=== PATIENT | male | born 1965 | race Caucasian/White ===

== ENCOUNTER 2017-04-09 06:17 | Day surgery (SDC) | payer OTHER ==
[2017-04-09] MEDS ORDERED: VANCOMYCIN 1 GM VIAL ONE (06:32)
[2017-04-09] MEDS ORDERED: LACTATED RINGERS 1,000 ML IV ONE ×3 (06:54→09:44)
[2017-04-09] MEDS ORDERED: diphenhydrAMINE INJ 50 MG/ML VIAL ONE ×2 (08:21→10:01)
[2017-04-09] MEDS ORDERED: BUPIVACAINE 0.5% PF 30 ML VIAL INFIL ONE (08:25)
[2017-04-09] MEDS ORDERED: ONDANSETRON 4 MG/2 ML VIAL IVP ONE (08:30)
[2017-04-09] MEDS ORDERED: fentaNYL 100 MCG/2 ML VIAL IVP ONE (08:30)
[2017-04-09] MEDS ORDERED: DEXAMETHASONE 4 MG/ML VIAL IVP ONE (08:30)
[2017-04-09] MEDS ORDERED: diphenhydrAMINE INJ 50 MG/ML VIAL IVP ONE (08:30)
[2017-04-09] MEDS ORDERED: KETOROLAC 30 MG/ML VIAL IVP ONE (08:30)
[2017-04-09] MEDS ORDERED: LIDOCAINE-MPF 2% 5 ML VIAL IM ONE (08:30)
[2017-04-09] MEDS ORDERED: PROPOFOL 200 MG/20 ML VIAL IVP ONE (08:30)
--- NOTE | 2017-04-09 08:51 | OPERATIVE REPORT ---
Operative Report - General Procedure Date: 04/09/17 Planned Procedure: Umbilical herniorrhaphy Pre-Op Diagnosis: Umbilical hernia Procedure Performed: Umbilical herniorrhaphy with mesh Post Op Diagnosis: Umbilical hernia - Procedure Note Primary Surgeon: Bryce Campbell MD Anesthesia Provider: Mo Stevens MD Anesthesia Technique: General ET tube, Local (30 mL of half percent Marcaine) IV Fluids (mL): 500 Estimated Blood Loss (mL): 5 Complications: None. - Other Other Information/Narrative: OPERATIVE DESCRIPTION/REPORT: After verbal and written informed consent was obtained detailing the risks of infection, bleeding requiring transfusion with its risks, nerve injury, and , and after I met with the patient confirming the surgery and the site of the surgery, the patient was brought to the operative suite and placed supine on the operating table. Great care was taken to avoid pressure points to prevent pressure necrosis or nerve injury. Monitoring devices were applied along with TEDs and pneumatic compressive stockings (to prevent DVT). The patient received preoperative antibiotics for surgical prophylaxis. Dr. Mo Stevens sedated and anethetized the patient for the entire procedure. The patient was prepped and draped in the usual sterile manner. With the patient draped my initials were clearly visible. A "time in" then confirmed that the paitient was identified with 3 identifiers (name, birthdate and medical record number), the history and physical was in the chart, the signed consent confirming the procedure was in the chart, the patient was in the correct position, the aforementioned prophylactic measures were in place or given, we had the correct personel and equipment to complete the procedure and that anesthesia, surgery and nursing were given an opportunuty to express any concerns. With the agreement of everyone in the room, we proceeded with the operation. After injecting the area with 1/2% marcaine, a standard curvilinear umbilical incision was made and dissection was carried down to the hernia sac using a combination of Metzenbaum scissors and Bovie electrocautery. The sac was cleared of overlying adherent tissue, and the fascial defect was delineated. The fascia was cleared of any adherent tissue for a distance 1.5 cm from the defect. The sac was resected using Bovie electrocautery. The defect was closed using a 1.7 inch in diameter Ventralex ST hernia patch (reference # [id number], lot #[id number], use by date 2018-08-21). This was inserted into the defect and the straps were cut long enough to use the straps to secure the patch superiorly and inferiorly with 2-0 PDS suture. The fascial defect was then closed over the mesh using a simple 2-0 PDS. The patient was then given an ``innie by suturing the back of the umbilicus to the fascia using a 2-0 Vicryl. Meticulous hemostasis was obtained using Bovie electrocautery. The skin incision was approximated with a running 4-0 Monocryl. At this point a time out was performed that confirmed that all the counts were correct, the procedure that was performed, the blood loss, the urine output, the IV fluids administered , and the patients condition. Having tolerated the procedure well, the patient was subsequently taken to short stay in good and stable condition.
[2017-04-09] MEDS ORDERED: HYDROCORTISONE SUCCINATE 100 MG/2 ML VIAL ONE (10:05)
[2017-04-09 10:49] VITALS: BP 96/63
== END 2017-04-09 06:18 | disposition home or self-care (01) ==
LOC: SDS 06:17
PROVIDERS: ATTEND Surgery
PROC: 0WUF0JZ Supplement Abdominal Wall with Synthetic Substitute, Open Approach (ICD-10-PCS; principal; 2017-04-09 07:30)
DX: K42.9 Umbilical hernia without obstruction or gangrene (principal); J45.909 Unspecified asthma, uncomplicated; Z87.891 Personal history of nicotine dependence
CPT/HCPCS: 49585; C1781; J3370; J7120

== ENCOUNTER 2018-11-05 16:53 | Outpatient (CLI) | payer OTHER ==
[2018-11-05 17:06] LABS: BASOPHILS # (AUTO) 0.1 10^3/uL (0.0-0.1); BASOPHILS % (AUTO) 1.2 %; EOSINOPHILS # (AUTO) 0.2 10^3/uL (0.0-0.7); EOSINOPHILS % (AUTO) 1.7 %; HGB - HEMOGLOBIN 14.9 g/dL (14.0-18.0); LYMPHOCYTES # (AUTO) 2.2 10^3/uL (1.5-3.5); LYMPHOCYTES % (AUTO) 25.2 %; MEAN CORPUSCULAR HEMOGLOBIN 29.1 pg (27.0-31.0); MEAN CORPUSCULAR HGB CONC 33.6 g/dL (32.0-36.0); MEAN CORPUSCULAR VOLUME 86.7 fL (80.0-94.0); MEAN PLATELET VOLUME 7.1 fL (7.4-11.4); MONOCYTES # (AUTO) 0.7 10^3/uL (0.0-1.0); MONOCYTES % (AUTO) 8.4 %; NEUTROPHILS # (AUTO) 5.6 10^3/uL (1.5-6.6); NEUTROPHILS % (AUTO) 63.5 %; PLT - PLATELET COUNT 286 10^3/uL (130-450); RED BLOOD COUNT 5.11 10^6/uL (4.70-6.10); RED CELL DISTRIBUTION WIDTH 12.9 % (12.0-15.0); WHITE BLOOD COUNT 8.9 x10^3/uL (4.8-10.8)
[2018-11-05 17:24] LABS: ALBUMIN 4.3 g/dL (3.2-5.5); ALBUMIN/GLOBULIN RATIO 1.7 (1.0-2.2); ALKALINE PHOSPHATASE 79 IU/L (42-121); ALT ALANINE AMINOTRANSFERASE 43 IU/L (10-60); AST ASPARTATE AMINOTRANSFERASE 28 IU/L (10-42); BILIRUBIN,TOTAL 0.8 mg/dL (0.2-1.0); BUN - BLOOD UREA NITROGEN 22 mg/dL (6-20); CALCIUM 9.1 mg/dL (8.5-10.3); CARBON DIOXIDE - CO2 26 mmol/L (21-32); CHLORIDE 100 mmol/L (101-111); CHOL/HDL RATIO 4.9 (<5.0); CHOLESTEROL 171 mg/dL; CREATININE 1.2 mg/dL (0.6-1.2); GFR - MDRD 63 (>89); GLUCOSE 98 mg/dL (70-100); HDL CHOLESTEROL 35 mg/dL; LDL CHOLESTEROL,CALCULATED 114 mg/dL; LDL/HDL RATIO 3.3 (<3.6); SODIUM 135 mmol/L (135-145); TOTAL PROTEIN 6.8 g/dL (6.7-8.2); VLDL CHOLESTEROL 22 mg/dL
== END 2018-11-05 16:54 | disposition home or self-care (01) ==
LOC: LAB 16:53
PROVIDERS: ATTEND Physician Assistant Medical
DX: Z00.00 Encounter for general adult medical examination without abnormal findings (principal)
CPT/HCPCS: 36415; 80053; 80061; 83721; 84443; 85025

== ENCOUNTER 2018-11-14 09:36 | Outpatient (CLI) | payer OTHER ==
[2018-11-14 13:05] LABS: BILIRUBIN,URINE NEGATIVE (NEGATIVE); GLUCOSE, URINE (UA) NEGATIVE (NEGATIVE); KETONES,URINE (UA) NEGATIVE (NEGATIVE); LEUKOCYTE ESTERASE, URINE NEGATIVE (NEGATIVE); NITRITE,URINE NEGATIVE (NEGATIVE); OCCULT BLOOD,URINE MODERATE (NEGATIVE); PROTEIN,URINE NEGATIVE (NEGATIVE); UROBILINOGEN,URINE 0.2 (NORMAL) E.U./dL (NORMAL)
[2018-11-14 13:06] LABS: CLARITY,URINE CLEAR (CLEAR)
[2018-11-14 13:18] LABS: BACTERIA,URINE None Seen /HPF (None Seen); SQUAMOUS EPITHELIAL CELL,UR NONE SEEN (<= Few)
[2018-11-14 13:19] LABS: MUCUS,URINE Few Strands
== END 2018-11-14 23:59 | disposition home or self-care (01) ==
LOC: LAB.WCP 09:36
PROVIDERS: ATTEND Family Medicine
DX: R31.9 Hematuria, unspecified (principal); Z12.5 Encounter for screening for malignant neoplasm of prostate
CPT/HCPCS: 36415; 81001; 84153

== ENCOUNTER 2020-06-12 11:50 | Emergency (ER) | payer OTHER ==
[2020-06-12 12:10] VITALS: BP 136/74
--- NOTE | 2020-06-12 12:20 | ED Physician Documentation ---
PD HPI UPPER EXT INJURY - Stated complaint Stated Complaint: R HAND INJURY - Chief complaint Chief Complaint: Trauma Ext - History obtained from History obtained from: Patient (He was working at home and pushing against it being with his right hand, the beam gave way and he impacted another piece of wood. His tetanus is up-to-date. No injuries other than the right hand. Declines pain medication on initial evaluation.) Review of Systems Constitutional: reports: Reviewed and negative Eyes: reports: Reviewed and negative Ears: reports: Reviewed and negative Nose: reports: Reviewed and negative Throat: reports: Reviewed and negative PD PAST MEDICAL HISTORY - Past Medical History Cardiovascular: None Respiratory: Asthma, Other Endocrine/Autoimmune: None GI: Diverticulitis : Other HEENT: None Psych: Depression, Anxiety Musculoskeletal: Osteoarthritis Derm: None - Past Surgical History Past Surgical History: No General: Colonoscopy Ortho: Hip replacement, Other HEENT: Tonsil/Adenoidectomy - Present Medications Home Medications: Ambulatory Orders Medication Instructions Recorded Confirmed Albuterol Sulf [Ventolin Hfa] 18 gm IH DAILY 04/01/17 04/09/17 Beclomethasone 80 Mcg [Qvar 80] 2 puffs INH BID 04/01/17 04/03/17 Clindamycin [Cleocin] 300 mg PO Q6H 7 Days capsule 06/12/20 Ketorolac [Toradol] 10 mg PO Q6H PRN #20 tablet 06/12/20 - Allergies Allergies/Adverse Reactions: Allergies Allergy/AdvReac Type Severity Reaction Status Date / Time ceftriaxone sodium * Allergy Edema Verified 06/12/20 12:06 [From Rocephin] cephalexin [From Keflex] Allergy Edema Verified 06/12/20 12:06 - Social History Does the pt smoke?: No Smoking Status: Never smoker Does the pt drink ETOH?: No Does the pt have substance abuse?: No - Immunizations Immunizations are current?: Yes PD ED PE NORMAL - Vitals Vital signs reviewed: Yes - General General: Alert and oriented X 3, No acute distress - Extremities Extremities: Other (There is a slight deformity of the mid fifth metacarpal on the right dorsally with tenderness there. Does not seem to have loss of saccade. There is just a little puncture wound over the injury dorsally, may be 3 mm in length, washed with Hibiclens and a Band-Aid during initial evaluation.) - Neuro Neuro: Alert and oriented X 3, Normal speech Results - Vitals Vitals: Vital Signs - 24 hr 06/12/20 12:06 Temperature 36.9 C Heart Rate 90 Respiratory 16 Rate Blood Pressure 136/74 H O2 Saturation 97 Oxygen O2 Source Room air Procedures - Splint (location) RUE Splint applied by: Physician Type of splint: Fiberglass, Short arm, Ulnar gutter Other: Patient tolerated well, No complications, Neurovascular intact PD MEDICAL DECISION MAKING - ED course ED course: 55-year-old gentleman with hand injury, 3 view right hand x-ray interpreted contemporaneously by me shows a distal metacarpal head fracture, old Bleich. There is no overlying laceration measuring only about 2 to 3 mm but this may represent an open fracture. It was prepped with Hibiclens on initial evaluation. After the x-ray the case was discussed by phone with the on-call orthopedic surgeon, Dr. Cyrus Mclean who agrees with conservative management, antibiotic prophylaxis. I will put him on clindamycin noting Keflex allergy. Dr. Mclean will see him tomorrow in follow-up. Departure - Departure Disposition: 01 Home, Self Care Clinical Impression: Open metacarpal fracture Qualifiers: Encounter type: initial encounter Metacarpal bone: fifth Metacarpal location: neck Fracture alignment: nondisplaced Laterality: right Qualified Code(s): S62.366B - Nondisplaced fracture of neck of fifth metacarpal bone, right hand, initial encounter for open fracture Condition: Good Record reviewed to determine appropriate education?: Yes Instructions: ED Fx Hand Open Follow-Up: Cyrus Mclean MD [Provider Admit Priv/Credential] - Tomorrow (at 10:30, ignore this address, the correct address is [address] [facility], [place] [address]) Prescriptions: Clindamycin [Cleocin] 300 mg PO Q6H 7 Days capsule Ketorolac [Toradol] 10 mg PO Q6H PRN #20 tablet PRN Reason: Pain Comments: Dr. Cyrus Mclean, our on-call orthopedist would like to see you in follow-up tomorrow. The office is at the [facility]. He would like to see you at 1030 tomorrow. Keep the splint on and dry until then. Do not remove it. Continue the antibiotic, and I have also prescribed at your request, Toradol for pain. Return for new or worsening symptoms. Keep it elevated as much as possible.
--- NOTE | 2020-06-12 12:49 | XRAY Report ---
PROCEDURE: Hand 3 View RT INDICATIONS: hand inj TECHNIQUE: 3 views of the hand(s) acquired. COMPARISON: None. FINDINGS: Bones: Oblique fracture through the fifth digit metacarpal head. There does not appear to be intra-ar ticular extension. There is minimal displacement. No dislocation. No suspicious bony lesions. Soft tissues: No suspicious soft tissue calcifications. IMPRESSION: Fifth digit metacarpal head fracture. Reviewed by: Rl Amaro MD on 06/12/2020 11:48 AM [facility] Approved by: Rl Amaro MD on 06/12/2020 11:48 AM [facility] Station ID: [id number]
[2020-06-12] MEDS ORDERED: CLINDAMYCIN 150 MG CAPSULE PO STA (12:56)
== END 2020-06-12 13:06 | disposition home or self-care (01) ==
LOC: ED 11:50
DX: S62.366 Nondisplaced fracture of neck of fifth metacarpal bone, right hand (principal); W22.09XA Striking against other stationary object, initial encounter; Y92.009 Unspecified place in unspecified non-institutional (private) residence as the place of occurrence of the external cause; Z88.1 Allergy status to other antibiotic agents
CPT/HCPCS: 29125; 73130; 99283; A9270

== ENCOUNTER 2020-07-21 18:13 | Outpatient (CLI) | payer OTHER ==
--- NOTE | 2020-07-21 17:18 | XRAY Report ---
PROCEDURE: Hand 3 View RT INDICATIONS: OTHER FX OF FIFTH METACARPAL BONE OF R HAND TECHNIQUE: 3 views of the hand(s) acquired. COMPARISON: 06/12/2020 FINDINGS: Bones: There is interval healing at displaced fifth metacarpal neck fracture site. Alignment of right hand is not significantly changed from prior study. No new fracture or dislocation. No suspicious kanu ny lesions. Soft tissues: No suspicious soft tissue calcifications. IMPRESSION: Healing displaced fifth metacarpal neck fracture with stable right hand alignment. Reviewed by: Dnoi Swartz MD on 07/21/2020 5:17 PM PST Approved by: Doni Swartz MD on 07/21/2020 5:17 PM PST Station ID: [id number]
== END 2020-07-21 23:59 | disposition home or self-care (01) ==
LOC: DI.N 18:13
PROVIDERS: ATTEND Physician Assistant
DX: S62.336B Displaced fracture of neck of fifth metacarpal bone, right hand, initial encounter for open fracture (principal)

== ENCOUNTER 2021-05-01 17:15 | Outpatient (CLI) | payer OTHER | END 2021-05-01 17:16 | disposition home or self-care (01) | LOC: LAB.N 17:15 | PROVIDERS: ATTEND Nurse Practitioner | DX: Z53.9 Procedure and treatment not carried out, unspecified reason (principal) ==

== ENCOUNTER 2021-05-02 15:38 | Outpatient (CLI) | payer OTHER ==
[2021-05-02 16:03] LABS: BILIRUBIN,URINE NEGATIVE (NEGATIVE); GLUCOSE, URINE (UA) NEGATIVE (NEGATIVE); KETONES,URINE (UA) NEGATIVE (NEGATIVE); LEUKOCYTE ESTERASE, URINE NEGATIVE (NEGATIVE); NITRITE,URINE NEGATIVE (NEGATIVE); OCCULT BLOOD,URINE MODERATE (NEGATIVE); PH,URINE 5.5 PH (5.0-7.5); PROTEIN,URINE NEGATIVE (NEGATIVE); UROBILINOGEN,URINE 0.2 (NORMAL) E.U./dL (NORMAL)
[2021-05-02 16:06] LABS: CLARITY,URINE HAZY (CLEAR)
[2021-05-02 16:12] LABS: BASOPHILS # (AUTO) 0.1 10^3/uL (0.0-0.1); BASOPHILS % (AUTO) 0.6 %; EOSINOPHILS # (AUTO) 0.1 10^3/uL (0.0-0.7); EOSINOPHILS % (AUTO) 1.4 %; HCT - HEMATOCRIT 47.1 % (42.0-52.0); HGB - HEMOGLOBIN 15.8 g/dL (14.0-18.0); LYMPHOCYTES # (AUTO) 2.3 10^3/uL (1.5-3.5); LYMPHOCYTES % (AUTO) 23.6 %; MEAN CORPUSCULAR HEMOGLOBIN 29.9 pg (27.0-31.0); MEAN CORPUSCULAR HGB CONC 33.5 g/dL (32.0-36.0); MEAN PLATELET VOLUME 9.1 fL (7.4-11.4); MONOCYTES # (AUTO) 0.8 10^3/uL (0.0-1.0); MONOCYTES % (AUTO) 8.5 %; NEUTROPHILS # (AUTO) 6.4 10^3/uL (1.5-6.6); NEUTROPHILS % (AUTO) 65.6 %; PLT - PLATELET COUNT 290 10^3/uL (130-450); RED BLOOD COUNT 5.29 10^6/uL (4.70-6.10); RED CELL DISTRIBUTION WIDTH 12.2 % (12.0-15.0); WHITE BLOOD COUNT 9.8 x10^3/uL (4.8-10.8)
[2021-05-02 16:19] LABS: BACTERIA,URINE None Seen /HPF (None Seen); SQUAMOUS EPITHELIAL CELL,UR NONE SEEN (<= Few); WBC,URINE 0-3 /HPF (0-3)
[2021-05-02 16:31] LABS: % IRON SATURATION 17 % (20-50); ALBUMIN 4.5 g/dL (3.2-5.5); ALBUMIN/GLOBULIN RATIO 1.5 (1.0-2.2); ALKALINE PHOSPHATASE 67 IU/L (42-121); ALT ALANINE AMINOTRANSFERASE 28 IU/L (10-60); AST ASPARTATE AMINOTRANSFERASE 21 IU/L (10-42); BILIRUBIN,TOTAL 0.7 mg/dL (0.2-1.0); BUN - BLOOD UREA NITROGEN 28 mg/dL (6-20); CALCIUM 9.2 mg/dL (8.5-10.3); CARBON DIOXIDE - CO2 26 mmol/L (21-32); CHLORIDE 101 mmol/L (101-111); CHOLESTEROL 179 mg/dL; CREATININE 1.2 mg/dL (0.6-1.2); GFR - MDRD 63 (>89); GLUCOSE 96 mg/dL (70-100); HDL CHOLESTEROL 36 mg/dL; IRON 59 ug/dL (45-182); LDL CHOLESTEROL,CALCULATED 123 mg/dL; LDL/HDL RATIO 3.4 (<3.6); POTASSIUM 3.9 mmol/L (3.5-5.0); SODIUM 137 mmol/L (135-145); TOTAL IRON BINDING CAPACITY 349 ug/dL (250-450); TOTAL PROTEIN 7.5 g/dL (6.7-8.2); TRANSFERRIN 249 mg/dL (180-329); TRIGLYCERIDES 100 mg/dL; VLDL CHOLESTEROL 20 mg/dL
[2021-05-02 16:42] LABS: THYROID STIMULATING HORMONE 2.45 uIU/mL (0.34-5.60)
[2021-05-02 20:23] LABS: ESTIMATED AVERAGE GLUCOSE 117 mg/dL (70-100); HEMOGLOBIN A1c% 5.7 % (4.27-6.07)
== END 2021-05-02 15:39 | disposition home or self-care (01) ==
LOC: LAB 15:38
PROVIDERS: ATTEND Nurse Practitioner
DX: R53.83 Other fatigue (principal); Z13.220 Encounter for screening for lipoid disorders; Z12.5 Encounter for screening for malignant neoplasm of prostate; Z13.1 Encounter for screening for diabetes mellitus
CPT/HCPCS: 36415; 80053; 80061; 81001; 81003; 82607; 83036; 83540; 83721; 84153; 84443; 84466; 85025

== ENCOUNTER 2021-09-18 12:00 | Day surgery (SDC) | payer OTHER ==
[2021-09-18] MEDS ORDERED: PROPOFOL 500 MG/50 ML 500 MG/50 ML VIAL ONE (12:04)
[2021-09-18] MEDS ORDERED: LACTATED RINGERS 1,000 ML IV ONE ×2 (12:17→13:13)
--- NOTE | 2021-09-18 12:35 | ANESTHESIA ---
Pre-Anesthesia VS, & Labs - Diagnosis screening - Procedure colonoscopy Vital Signs: Temp Pulse Resp BP Pulse Ox 36.4 C L 80 16 127/79 97 09/18/21 12:18 09/18/21 12:18 09/18/21 12:18 09/18/21 12:18 09/18/21 12:18 Height: 5 ft 8 in Weight (kg): 87.9 kg Body Mass Index: 29.5 BMI Classification: Overweight - NPO >8 hours Home Medications and Allergies Albuterol Sulf [Ventolin Hfa] 18 gm IH DAILY 04/01/17 Beclomethasone 80 Mcg [Qvar 80] 2 puffs INH BID 04/01/17 Allergies/Adverse Reactions: Allergies Allergy/AdvReac Type Severity Reaction Status Date / Time ceftriaxone sodium * Allergy Edema Verified 09/18/21 11:46 [From Rocephin] cephalexin [From Keflex] Allergy Edema Verified 09/18/21 11:46 Anes History & Medical History - Anesthetic History Anesthesia Complications: reports: No previous complications - Medical History Cardiovascular: reports: None Pulmonary: reports: Asthma, Other Gastrointestinal: reports: None Urinary: reports: None Musculoskeletal: reports: Rheumatoid arthritis Endocrine/Autoimmune: reports: None Skin: reports: None Smoking Status: Never smoker History of Cancer?: No - Surgical History General: reports: Other Eyes Ears Nose Throat (EENT): reports: Tonsil/Adenoidectomy Orthopedic: reports: Hip replacement Exam General: Alert, Oriented x3 Dental: WNL Mouth Opening: Greater than 4 Fingerbreadths Mallampati classification: II Respiratory: Lungs clear Cardiovascular: Regular rate Plan Anesthesia Type: Total IV Consent for Procedure(s) Verified and Reviewed: Yes Code Status: Attempt Resuscitation ASA classification: 2-Mild systemic disease Is this case an emergency?: No
[2021-09-18 14:05] VITALS: BP 109/54
--- NOTE | 2021-09-18 14:17 | ANESTHESIA POST OP EVALUATION ---
Anesthesia Post Eval - Post Anesthesia Eval Vitals: Last Vital Signs Temp 36.4 C L 09/18/21 13:45 Pulse 91 09/18/21 13:45 Resp 18 09/18/21 13:45 BP 109/54 L 09/18/21 13:45 Pulse Ox 97 09/18/21 13:45 CV Function Including HR & BP: Stable Pain Control: Satisfactory Nausea & Vomiting: Negative Mental Status: Baseline Respiratory Status: Airway Patent Hydration Status: Satisfactory Anesthesia Complications: None
== END 2021-09-18 12:01 | disposition home or self-care (01) ==
LOC: SDS 12:00
PROVIDERS: ATTEND Surgery
DX: Z12.11 Encounter for screening for malignant neoplasm of colon (principal); K57.30 Diverticulosis of large intestine without perforation or abscess without bleeding; K64.8 Other hemorrhoids; Z83.71 Family history of colonic polyps; J45.909 Unspecified asthma, uncomplicated
CPT/HCPCS: 45378; J7120

== ENCOUNTER 2022-06-14 12:19 | Outpatient (CLI) | payer OTHER ==
--- NOTE | 2022-06-14 14:14 | XRAY Report ---
PROCEDURE: Chest 2 View X-Ray INDICATIONS: REACTIVE AIRWAY DISEASE TECHNIQUE: 2 views of the chest were acquired. COMPARISON: 08/22/2016 plain films FINDINGS: Surgical changes and devices: None. Lungs and pleura: No pleural effusions or pneumothorax. Mild bilateral peribronchial cuffing. Mediastinum: Mediastinal contours are normal. Heart size is normal. Bones and chest wall: No suspicious bony abnormalities. Soft tissues appear unremarkable. IMPRESSION: Mild bronchitis. Reviewed by: Raimundo Saunders MD on 06/14/2022 2:13 PM PST Approved by: Raimundo Saunders MD on 06/14/2022 2:13 PM PST Station ID: [id number]
== END 2022-06-14 23:59 | disposition home or self-care (01) ==
LOC: DI.N 12:19
PROVIDERS: ATTEND Registered Nurse
DX: J45.909 Unspecified asthma, uncomplicated (principal); R53.83 Other fatigue

== ENCOUNTER 2022-08-10 14:15 | Outpatient (CLI) | payer OTHER ==
[2022-08-10 17:40] LABS: BASOPHILS # (AUTO) 0.1 10^3/uL (0.0-0.1); BASOPHILS % (AUTO) 0.9 %; EOSINOPHILS # (AUTO) 1.1 10^3/uL (0.0-0.7); EOSINOPHILS % (AUTO) 6.9 %; HCT - HEMATOCRIT 49.5 % (42.0-52.0); HGB - HEMOGLOBIN 16.3 g/dL (14.0-18.0); LYMPHOCYTES # (AUTO) 3.5 10^3/uL (1.5-3.5); LYMPHOCYTES % (AUTO) 21.7 %; MEAN CORPUSCULAR HEMOGLOBIN 29.5 pg (27.0-31.0); MEAN CORPUSCULAR HGB CONC 32.9 g/dL (32.0-36.0); MEAN CORPUSCULAR VOLUME 89.7 fL (80.0-94.0); MEAN PLATELET VOLUME 9.6 fL (7.4-11.4); MONOCYTES # (AUTO) 1.4 10^3/uL (0.0-1.0); MONOCYTES % (AUTO) 8.7 %; NEUTROPHILS # (AUTO) 9.8 10^3/uL (1.5-6.6); PLT - PLATELET COUNT 360 10^3/uL (130-450); RED BLOOD COUNT 5.52 10^6/uL (4.70-6.10); RED CELL DISTRIBUTION WIDTH 12.5 % (12.0-15.0)
[2022-08-10 17:57] LABS: ALBUMIN 4.2 g/dL (3.2-5.5); ALBUMIN/GLOBULIN RATIO 1.4 (1.0-2.2); ALKALINE PHOSPHATASE 62 IU/L (42-121); ALT ALANINE AMINOTRANSFERASE 36 IU/L (10-60); AST ASPARTATE AMINOTRANSFERASE 25 IU/L (10-42); BILIRUBIN,TOTAL 1.3 mg/dL (0.2-1.0); BUN - BLOOD UREA NITROGEN 24 mg/dL (6-20); CARBON DIOXIDE - CO2 24 mmol/L (21-32); CHLORIDE 100 mmol/L (101-111); CREATININE 1.1 mg/dL (0.6-1.2); GFR - MDRD 69 (>89); GLUCOSE 93 mg/dL (70-100); POTASSIUM 3.8 mmol/L (3.5-5.0); SODIUM 133 mmol/L (135-145); TOTAL PROTEIN 7.2 g/dL (6.7-8.2)
[2022-08-10 18:22] LABS: CRP - C-REACTIVE PROTEIN < 1.0 mg/dL (0-1.0)
== END 2022-08-10 14:30 | disposition home or self-care (01) ==
LOC: LAB.N 14:15
PROVIDERS: ATTEND Registered Nurse
DX: J18.9 Pneumonia, unspecified organism (principal)
CPT/HCPCS: 36415; 80053; 83880; 85025; 85379; 86140

== ENCOUNTER 2022-08-10 15:28 | Outpatient (CLI) | payer OTHER ==
--- NOTE | 2022-08-10 17:03 | XRAY Report ---
PROCEDURE: Chest 2 View X-Ray INDICATIONS: COMMUNITY ACQUIRED PNEUOMONIA TECHNIQUE: 2 views of the chest were acquired. COMPARISON: None. FINDINGS: Surgical changes and devices: None. Lungs and pleura: No pleural effusions or pneumothorax. Lungs are clear. Mediastinum: Mediastinal contours are normal. Heart size is normal. Bones and chest wall: No suspicious bony abnormalities. Soft tissues appear unremarkable. IMPRESSION: No acute cardiopulmonary process. Reviewed by: Nagi Barrera on 08/10/2022 5:01 PM [facility] Approved by: Nagi Barrera on 08/10/2022 5:01 PM [facility] Station ID: [id number]
== END 2022-08-10 15:29 | disposition home or self-care (01) ==
LOC: DI 15:28
PROVIDERS: ATTEND Registered Nurse
DX: J18.9 Pneumonia, unspecified organism (principal)
CPT/HCPCS: 36415; 80053; 83880; 85025; 85379; 86140

== ENCOUNTER 2022-08-14 13:40 | Outpatient (CLI) | payer OTHER ==
[2022-08-14 18:04] LABS: BASOPHILS # (AUTO) 0.1 10^3/uL (0.0-0.1); BASOPHILS % (AUTO) 0.4 %; EOSINOPHILS % (AUTO) 0.1 %; HGB - HEMOGLOBIN 15.5 g/dL (14.0-18.0); LYMPHOCYTES # (AUTO) 1.2 10^3/uL (1.5-3.5); LYMPHOCYTES % (AUTO) 8.4 %; MEAN CORPUSCULAR HEMOGLOBIN 29.4 pg (27.0-31.0); MEAN CORPUSCULAR HGB CONC 32.3 g/dL (32.0-36.0); MEAN CORPUSCULAR VOLUME 91.1 fL (80.0-94.0); MEAN PLATELET VOLUME 9.8 fL (7.4-11.4); MONOCYTES # (AUTO) 0.5 10^3/uL (0.0-1.0); MONOCYTES % (AUTO) 3.7 %; NEUTROPHILS # (AUTO) 12.3 10^3/uL (1.5-6.6); NEUTROPHILS % (AUTO) 86.3 %; PLT - PLATELET COUNT 309 10^3/uL (130-450); RED BLOOD COUNT 5.27 10^6/uL (4.70-6.10); RED CELL DISTRIBUTION WIDTH 12.6 % (12.0-15.0); WHITE BLOOD COUNT 14.3 x10^3/uL (4.8-10.8)
[2022-08-14 18:25] LABS: ALBUMIN/GLOBULIN RATIO 1.4 (1.0-2.2); ALKALINE PHOSPHATASE 57 IU/L (42-121); ALT ALANINE AMINOTRANSFERASE 36 IU/L (10-60); AST ASPARTATE AMINOTRANSFERASE 22 IU/L (10-42); BILIRUBIN,TOTAL 0.7 mg/dL (0.2-1.0); BUN - BLOOD UREA NITROGEN 28 mg/dL (6-20); CALCIUM 9.3 mg/dL (8.5-10.3); CARBON DIOXIDE - CO2 26 mmol/L (21-32); CHLORIDE 101 mmol/L (101-111); CREATININE 1.1 mg/dL (0.6-1.2); GFR - MDRD 69 (>89); GLUCOSE 166 mg/dL (70-100); SODIUM 134 mmol/L (135-145); TOTAL PROTEIN 6.8 g/dL (6.7-8.2)
[2022-08-14 18:39] LABS: CRP - C-REACTIVE PROTEIN < 1.0 mg/dL (0-1.0)
== END 2022-08-14 13:41 | disposition home or self-care (01) ==
LOC: LAB.N 13:40
PROVIDERS: ATTEND Nurse Practitioner
DX: J18.9 Pneumonia, unspecified organism (principal); R22.0 Localized swelling, mass and lump, head
CPT/HCPCS: 36415; 80053; 85025; 86140

== ENCOUNTER 2022-08-25 02:47 | Emergency (ER) | payer OTHER ==
--- NOTE | 2022-08-25 03:14 | ED Physician Documentation ---
PD HPI DYSPNEA - Stated complaint Stated Complaint: SOA - Chief complaint Chief Complaint: Resp - History obtained from History obtained from: Patient - History of Present Illness Timing - onset: How many days ago (He has been noticing waxing and waning degrees of dyspnea and wheezing since May. 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 He has had variable degrees of it the last 2-1/2 months.) Timing - onset during: Light activity Timing - details: Gradual onset, Waxing and waning (He has had variable degrees of symptoms over the last 2 and half months. He has been on 2 courses of steroids and antibiotics over 5 to 6 days each time. Most recent ended 4 days ago. Feels better when on the meds. Has albuterol at home. No oxygen.) Inciting event(s): No: Out of meds, URI (he did not have apparent infection, but states it started with dust/construction activity at work in May.) Improved by: Inhaler/neb, Steroids Associated symptoms: Cough, Wheezing. No: Fever, Bilateral edema Recently seen: Clinic ( Seen in clinic twice with initial treatment of steroids and Z-Earl. Had chest x-ray without any infiltrates. Repeat visit 2 weeks later when symptoms back and treated steroid for 6 days as well as amoxicillin and doxycycline. Again improved while on meds.) Review of Systems Constitutional: reports: Myalgias, Fatigue. denies: Fever, Chills Nose: reports: Sinus pressure / pain. denies: Rhinorrhea / runny nose, Congestion Throat: reports: Dental pain / toothache (had dental cleaning a week ago without problems.). denies: Sore throat Cardiac: denies: Chest pain / pressure, Palpitations, Pedal edema, Calf pain Respiratory: reports: Dyspnea, Cough, Wheezing GI: denies: Vomiting, Diarrhea Skin: denies: Rash, Lesions Neurologic: denies: Altered mental status, Headache PD PAST MEDICAL HISTORY - Past Medical History Past Medical History: Yes Cardiovascular: None Respiratory: Asthma, Other Endocrine/Autoimmune: None GI: None, Other : None HEENT: Chronic hearing loss Psych: None Musculoskeletal: Rheumatoid arthritis Derm: None Other Past Medical History: Umbilical hernia - Past Surgical History Past Surgical History: No General: Other Ortho: Hip replacement HEENT: Tonsil/Adenoidectomy - Present Medications Home Medications: Ambulatory Orders Medication Instructions Recorded Confirmed Albuterol Sulf [Ventolin Hfa] 18 gm IH DAILY 04/01/17 08/25/22 Beclomethasone 80 Mcg [Qvar 80] 2 puffs INH BID 04/01/17 08/25/22 Ketorolac [Toradol] 10 mg PO Q6H PRN #20 tablet 06/12/20 08/25/22 Fluticasone Propion/Salmeterol 1 each IH BID 30 Days #1 each 08/25/22 [Fluticasone-Salmeterol 250-50] Ipratropium [Atrovent] 0.5 mg INH Q6H #100 each 08/25/22 dexAMETHasone [Decadron] 4 mg PO DAILY #7 tablet 08/25/22 - Allergies Allergies/Adverse Reactions: Allergies Allergy/AdvReac Type Severity Reaction Status Date / Time ceftriaxone sodium * Allergy Edema Verified 08/25/22 02:51 [From Rocephin] cephalexin [From Keflex] Allergy Edema Verified 08/25/22 02:51 - Social History Does the pt smoke?: No Smoking Status: Former smoker Does the pt drink ETOH?: No Does the pt have substance abuse?: No - Immunizations Immunizations are current?: Yes - POLST Patient has POLST: No PD ED PE NORMAL - Vitals Vital signs reviewed: Yes - General General: Alert and oriented X 3, Well developed/nourished, Other (some dyspnea with talking initially on presentation. ) - Neck Neck: Supple, no meningeal sign, No adenopathy, No bruit - Cardiac Cardiac: RRR - Respiratory Respiratory: No: Clear bilaterally (diffuse exp wheezing. NO coarse sounds. ) - Extremities Extremities: Normal ROM s pain, No edema, No calf tenderness / cord Results - Vitals Vitals: Vital Signs - 24 hr 08/25/22 08/25/22 08/25/22 02:52 03:17 03:20 Temperature 36.7 C Heart Rate 99 89 Respiratory 18 17 Rate Blood Pressure 138/80 H 123/82 H O2 Saturation 94 93 95 If not protocol 2 : Oxygen Flow, liters/minute 08/25/22 08/25/22 03:50 04:08 Temperature Heart Rate 114 H 92 Respiratory 18 20 Rate Blood Pressure 118/86 H O2 Saturation 94 If not protocol 2 : Oxygen Flow, liters/minute Oxygen O2 Source Room air Oxygen Flow Rate 2 PD Medical Decision Making - ED course Complexity details: re-evaluated patient, considered differential (asthma persistent and worse. Consider continued exposure to allergens/irritants at work. less likely pneumonia. ) Reviewed Lab Results: The patient had blood test done just today outpatient and showed a normal white count and eosinophil count. Basic chemistry was normal as well. BNP from August 20 was in the normal range. Chest x-ray done couple of weeks ago did not show any infiltrates and had a normal heart size. No effusions. ED course: He was given a DuoNeb and a dose of Decadron here. He had been using albuterol at home. He states the DuoNeb worked better. He is less wheezy. I can prescribe some ipratropium to use in conjunction with his albuterol at home and the nebulizer. I would redo a course of steroids with Decadron daily for 7 days. He had been on 2 courses of antibiotics and there is no indication per se for bacterial cause. Therefore I did not feel antibiotics were appropriate. He had a chest x-ray done in the last couple of weeks which did not show any infiltrates. He had blood work done outpatient just yesterday and I referenced those. Departure - Departure Disposition: Home, Self Care Clinical Impression: Dyspnea, Reactive airway disease with acute exacerbation Condition: Stable Record reviewed to determine appropriate education?: Yes Prescriptions: Ipratropium [Atrovent] 0.5 mg INH Q6H #100 each dexAMETHasone [Decadron] 4 mg PO DAILY #7 tablet Fluticasone Propion/Salmeterol [Fluticasone-Salmeterol 250-50] 1 each IH BID 30 Days #1 each Comments: Your blood count done Saturday showed a normal white count in the eosinophil count was actually just in the normal range. Your basic electrolytes were good as well. Iron level was in the normal range. Your most recent chest x-ray did not show any acute abnormalities. At this point I would not see the reason to repeat the x-ray per se. I would have you continue the albuterol nebulizer 3-4 times daily. To that add ipratropium 3-4 times daily as well over the next several days to week. See if the combination does better. In addition I would add an inhaled steroid and long-acting beta agonist (fluticasone/ salmeterol) 1 inhalation twice daily regularly. We will also redo a steroid dosingDecadron 4 mg daily for 7 days. I sent these prescriptions [facility] for you. See how you do over the next several days and return if needed. Follow-up with your primary care. Discharge Date/Time: 08/25/22 04:25
[2022-08-25] MEDS ORDERED: IPRATROPIUM/ALBUTEROL 3 ML NEB INH STA (03:38)
[2022-08-25] MEDS ORDERED: CHERRY SYRUP 10 ML UDC PO ONE (03:39)
[2022-08-25] MEDS ORDERED: DEXAMETHASONE 10 MG/ML VIAL PO STA (03:39)
[2022-08-25 04:10] VITALS: BP 118/86
== END 2022-08-25 04:25 | disposition home or self-care (01) ==
LOC: ED 02:47
DX: J45.901 Unspecified asthma with (acute) exacerbation (principal); Z87.891 Personal history of nicotine dependence
CPT/HCPCS: 94640; 99283; 99284; A9270

== ENCOUNTER 2022-08-30 08:00 | Outpatient (CLI) | payer OTHER | END 2022-08-30 23:59 | disposition home or self-care (01) | LOC: LAB 08:00 | PROVIDERS: ATTEND Registered Nurse | DX: G25.0 Essential tremor (principal); R41.3 Other amnesia; R06.09 Other forms of dyspnea; R53.83 Other fatigue | CPT/HCPCS: 81599; 86038 ==

== ENCOUNTER 2022-09-14 08:00 | Outpatient (CLI) | payer OTHER ==
[2022-09-14 21:05] LABS: BASOPHILS # (AUTO) 0.1 10^3/uL (0.0-0.1); BASOPHILS % (AUTO) 0.8 %; EOSINOPHILS # (AUTO) 0.6 10^3/uL (0.0-0.7); EOSINOPHILS % (AUTO) 6.8 %; HCT - HEMATOCRIT 43.6 % (42.0-52.0); HGB - HEMOGLOBIN 14.5 g/dL (14.0-18.0); LYMPHOCYTES # (AUTO) 1.5 10^3/uL (1.5-3.5); LYMPHOCYTES % (AUTO) 17.9 %; MEAN CORPUSCULAR HEMOGLOBIN 29.7 pg (27.0-31.0); MEAN CORPUSCULAR HGB CONC 33.3 g/dL (32.0-36.0); MEAN CORPUSCULAR VOLUME 89.3 fL (80.0-94.0); MEAN PLATELET VOLUME 9.4 fL (7.4-11.4); MONOCYTES # (AUTO) 0.8 10^3/uL (0.0-1.0); MONOCYTES % (AUTO) 8.9 %; NEUTROPHILS # (AUTO) 5.5 10^3/uL (1.5-6.6); NEUTROPHILS % (AUTO) 65.1 %; PLT - PLATELET COUNT 259 10^3/uL (130-450); RED BLOOD COUNT 4.88 10^6/uL (4.70-6.10); RED CELL DISTRIBUTION WIDTH 12.4 % (12.0-15.0); WHITE BLOOD COUNT 8.4 x10^3/uL (4.8-10.8)
[2022-09-14 21:20] LABS: ALBUMIN 3.9 g/dL (3.2-5.5); ALBUMIN/GLOBULIN RATIO 1.3 (1.0-2.2); BILIRUBIN,TOTAL 0.5 mg/dL (0.2-1.0); CALCIUM 8.6 mg/dL (8.5-10.3); CREATININE 1.1 mg/dL (0.6-1.2); POTASSIUM 3.7 mmol/L (3.5-5.0); TOTAL PROTEIN 6.8 g/dL (6.7-8.2)
== END 2022-09-14 23:59 | disposition home or self-care (01) ==
LOC: LAB.N 08:00
PROVIDERS: ATTEND Registered Nurse
DX: R06.09 Other forms of dyspnea (principal)
CPT/HCPCS: 36415; 80053; 83880; 85025; 85379

== ENCOUNTER 2022-09-16 17:26 | Outpatient (CLI) | payer OTHER ==
--- NOTE | 2022-09-17 02:55 | XRAY Report ---
PROCEDURE: Chest 2 View X-Ray INDICATIONS: EXERTIONAL SHORTNESS OF BREATH/REACTIVE AIRWAY DIS TECHNIQUE: 2 views of the chest were acquired. COMPARISON: 08/10/2022. FINDINGS: Surgical changes and devices: None. Lungs and pleura: No pleural effusions or pneumothorax. Lungs are clear. Mediastinum: Mediastinal contours are normal. Heart size is normal. Bones and chest wall: No suspicious bony abnormalities. Soft tissues appear unremarkable. IMPRESSION: 1. No acute cardiopulmonary disease. Reviewed by: Jerman Nicholas MD on 09/17/2022 2:53 AM PDT Approved by: Jerman Nicholas MD on 09/17/2022 2:53 AM PDT Station ID: [id number]
== END 2022-09-16 17:27 | disposition home or self-care (01) ==
LOC: DI 17:26
PROVIDERS: ATTEND Registered Nurse
DX: R06.09 Other forms of dyspnea (principal); J45.909 Unspecified asthma, uncomplicated

== ENCOUNTER 2022-10-09 12:31 | Emergency (ER) | payer OTHER ==
[2022-10-09] MEDS ORDERED: ONDANSETRON 4 MG/2 ML VIAL IVP STA (13:04)
[2022-10-09] MEDS ORDERED: HYDROmorphone 1 MG/ML CARPUJECT IVP STA ×2 (13:04→14:05)
[2022-10-09] MEDS ORDERED: SODIUM CHLORIDE 0.9% 1,000 ML IV STA ×3 (13:04→15:56)
--- NOTE | 2022-10-09 13:07 | ED Physician Documentation ---
History of Present Illness - Stated complaint Stated Complaint: HIP PAIN/ABD TENDERNESS - Chief complaint Chief Complaint: Trauma Ext - Additonal information Additional information: 57-year-old male presents to the emergency department for evaluation of acute left hip and left-sided abdominal pain. Reports that on Saturday morning, 2 days ago, he was laying in bed and his dog wanted to get up on the bed. He attempted to pick the dog up from a laying position and felt and heard a loud pop in the left hip. States has been uncomfortable since. Yesterday he thought it was getting better but today the pain is radiated up into his abdomen and he has been unable to find any position of comfort. He did take some Toradol without relief of pain. Patient has been having some respiratory issues over the last several months. He has been on prednisone for the last 10 weeks and is scheduled to see a cardiology associate tomorrow. Patient denies fevers, urinary symptoms. He has no melena or hematochezia. Past abdominal surgical history includes umbilical hernia repair only. He does have a history of diverticulitis. Review of Systems Constitutional: reports: Fever. denies: Chills Cardiac: reports: Reviewed and negative Respiratory: reports: Reviewed and negative GI: reports: Abdominal Pain, Nausea. denies: Constipation, Diarrhea, Hematemesis, Bloody / black stool : reports: Reviewed and negative Skin: reports: Reviewed and negative Musculoskeletal: reports: Reviewed and negative PD PAST MEDICAL HISTORY - Past Medical History Cardiovascular: None Respiratory: Asthma, Other Endocrine/Autoimmune: None GI: None, Other : None HEENT: Chronic hearing loss Psych: None Musculoskeletal: Rheumatoid arthritis Derm: None - Past Surgical History Past Surgical History: No General: Other Ortho: Hip replacement HEENT: Tonsil/Adenoidectomy - Present Medications Home Medications: Ambulatory Orders Medication Instructions Recorded Confirmed Albuterol Sulf [Ventolin Hfa] 18 gm IH DAILY 04/01/17 08/25/22 Beclomethasone 80 Mcg [Qvar 80] 2 puffs INH BID 04/01/17 08/25/22 Ketorolac [Toradol] 10 mg PO Q6H PRN #20 tablet 06/12/20 08/25/22 Fluticasone Propion/Salmeterol 1 each IH BID 30 Days #1 each 08/25/22 [Fluticasone-Salmeterol 250-50] Ipratropium [Atrovent] 0.5 mg INH Q6H #100 each 08/25/22 dexAMETHasone [Decadron] 4 mg PO DAILY #7 tablet 08/25/22 - Allergies Allergies/Adverse Reactions: Allergies Allergy/AdvReac Type Severity Reaction Status Date / Time ceftriaxone sodium * Allergy Edema Verified 10/09/22 12:34 [From Rocephin] cephalexin [From Keflex] Allergy Edema Verified 10/09/22 12:34 - Social History Does the pt smoke?: No Smoking Status: Former smoker Does the pt drink ETOH?: No Does the pt have substance abuse?: No - Immunizations Immunizations are current?: Yes - POLST Patient has POLST: No PD ED PE EXPANDED - General General: Alert, In Pain - Cardiac Cardiac: Regular Rate, Radial strong equal, Pedal strong equal, Cap refill < 2 sec - Respiratory Respiratory: Clear to ausultation ruma. No: Distress, Labored - Abdomen Abdomen: Tender to palpation, Rebound, Guarding (Exquisite tenderness to the left flank and lower quadrant with even mild palpation or percussion. Peritoneal) - Back Back: Normal exam. No: CVA TTP right, CVA TTP left - Extremities Extremities: Left hip (Patient prefers to keep the hip in the flexed position and will not allow passive or active range of motion. Tender with palpation anteriorly and laterally. No swelling or ecchymosis) - Neuro Neuro: Alert and Oriented X 3, CNII-XII intact - GCS Eye Opening: Spontaneous Motor: Obeys Commands Verbal: Oriented Total: 15 Results - Vitals Vitals: Vital Signs - 24 hr 10/09/22 10/09/22 10/09/22 12:34 13:29 15:00 Temperature 36.5 C Heart Rate 100 78 95 Respiratory 18 16 16 Rate Blood Pressure 147/93 H 147/84 H 124/91 H O2 Saturation 98 97 98 Oxygen O2 Source Room air - Labs Labs: Laboratory Tests 10/09/22 10/09/22 10/09/22 13:05 13:05 13:20 WBC 16.4 H RBC 4.82 Hgb 14.1 Hct 43.3 MCV 89.8 MCH 29.3 MCHC 32.6 RDW 12.6 Plt Count 313 MPV 9.1 Neut # (Auto) 14.0 H Lymph # (Auto) 1.0 L [place] # (Auto) 1.2 H Eos # (Auto) 0.0 Baso # (Auto) 0.1 Absolute Nucleated RBC 0.00 Nucleated RBC % 0.0 Sodium 133 L Potassium 4.3 Chloride 104 Carbon Dioxide 23 Anion Gap 6.0 BUN 31 H Creatinine 1.2 Estimated GFR (MDRD) 62 L Glucose 138 H Calcium 8.9 Total Bilirubin 0.6 AST 18 ALT 33 Alkaline Phosphatase 57 Total Protein 7.1 Albumin 4.1 Globulin 3.0 Albumin/Globulin Ratio 1.4 Lipase 40 Urine Color YELLOW Urine Clarity CLEAR Urine pH 5.5 Ur Specific [place] >=1.030 H Urine Protein TRACE Urine Glucose (UA) NEGATIVE Urine Ketones NEGATIVE Urine Occult Blood MODERATE H Urine Nitrite NEGATIVE Urine Bilirubin NEGATIVE Urine Urobilinogen 0.2 (NORMAL) Ur Leukocyte Esterase NEGATIVE Urine RBC 0-5 Urine WBC 0-3 Ur Squamous Epith Cells RARE Squamous Urine Bacteria None Seen Urine Mucus Moderate Strands Ur Microscopic Review INDICATED Urine Culture Comments NOT INDICATED - Rads (name of study) CT abd Relevant Findings:: Final report received (Large left psoas muscle hematoma with extension into the lower left retroperitoneum. Small central hyperdensity suggest continuing active hemorrhage. Distal colonic diverticulosis. Probable liver dome hemangioma.) PD Medical Decision Making - ED course Complexity details: reviewed results, re-evaluated patient, considered differential, d/w patient ED course: 57-year-old male presents to the emergency department for evaluation of acute left hip pain that radiates into his lower abdomen. Began 2 days ago when he rolled over in bed and attempted to pick his dog up. He felt a pop in the hip with pain extending into the lower abdomen. Over the last 2 days pain has become excruciating and on presentation he has significant peritoneal tenderness on the left abdomen. I obtained a CBC and electrolytes. I do note modest leukocytosis white count of 16,000. However he has been on steroids for about 10 weeks due to a respiratory issue this may be reflective of that. His electrolytes showed no acute worrisome findings. He was not anemic. Here in the emergency department the patient was administered 2 L of IV fluid. He had very difficult to control pain. Initially not improved with 2 doses of IV Dilaudid followed by fentanyl. He was able to get some relief by receiving 2.5 mg of Valium. Subsequently a CT of the abdomen showed a very large left psoas muscle hematoma with extension into the left retroperitoneum. There was suggestion of continuing active hemorrhage. I initially spoke with our orthopedist who recommended to discuss with surgery. I discussed with Juan Chavez who declined to admit here as he felt the patient would need interventional radiology. Subsequently we reached out to [facility] where the patient was accepted in direct transfer to the ER by Dr. Zaid Harkins. Appropriate COBRA paperwork will be completed. Given the significant tenderness, poor analgesia and a lengthy time to transport from the [place] to [facility] which could exceed 3 hours we will send the patient via [facility]. I discussed this plan of finding with the patient and he is in agreement. Departure - Departure Disposition: 02 Transfer Acute Care Hosp Clinical Impression: Chronic steroid use Hematoma of left iliopsoas muscle Qualifiers: Encounter type: initial encounter Qualified Code(s): S70.12XA - Contusion of left thigh, initial encounter Condition: Serious Record reviewed to determine appropriate education?: Yes
[2022-10-09 13:17] LABS: BASOPHILS # (AUTO) 0.1 10^3/uL (0.0-0.1); BASOPHILS % (AUTO) 0.4 %; EOSINOPHILS % (AUTO) 0.2 %; HCT - HEMATOCRIT 43.3 % (42.0-52.0); HGB - HEMOGLOBIN 14.1 g/dL (14.0-18.0); LYMPHOCYTES % (AUTO) 6.2 %; MEAN CORPUSCULAR HEMOGLOBIN 29.3 pg (27.0-31.0); MEAN CORPUSCULAR HGB CONC 32.6 g/dL (32.0-36.0); MEAN CORPUSCULAR VOLUME 89.8 fL (80.0-94.0); MEAN PLATELET VOLUME 9.1 fL (7.4-11.4); MONOCYTES # (AUTO) 1.2 10^3/uL (0.0-1.0); MONOCYTES % (AUTO) 7.4 %; NEUTROPHILS % (AUTO) 85.3 %; PLT - PLATELET COUNT 313 10^3/uL (130-450); RED BLOOD COUNT 4.82 10^6/uL (4.70-6.10); RED CELL DISTRIBUTION WIDTH 12.6 % (12.0-15.0); WHITE BLOOD COUNT 16.4 x10^3/uL (4.8-10.8)
[2022-10-09 13:38] LABS: ALBUMIN 4.1 g/dL (3.2-5.5); ALBUMIN/GLOBULIN RATIO 1.4 (1.0-2.2); BILIRUBIN,TOTAL 0.6 mg/dL (0.2-1.0); CALCIUM 8.9 mg/dL (8.5-10.3); CREATININE 1.2 mg/dL (0.6-1.2); POTASSIUM 4.3 mmol/L (3.5-5.0); TOTAL PROTEIN 7.1 g/dL (6.7-8.2)
[2022-10-09 13:42] LABS: BILIRUBIN,URINE NEGATIVE (NEGATIVE); GLUCOSE, URINE (UA) NEGATIVE (NEGATIVE); KETONES,URINE (UA) NEGATIVE (NEGATIVE); LEUKOCYTE ESTERASE, URINE NEGATIVE (NEGATIVE); NITRITE,URINE NEGATIVE (NEGATIVE); OCCULT BLOOD,URINE MODERATE (NEGATIVE); PH,URINE 5.5 PH (5.0-7.5); PROTEIN,URINE TRACE mg/dL (NEGATIVE); UROBILINOGEN,URINE 0.2 (NORMAL) E.U./dL (NORMAL)
[2022-10-09 13:50] LABS: BACTERIA,URINE None Seen /HPF (None Seen); CLARITY,URINE CLEAR (CLEAR); RBC,URINE 0-5 /HPF (0-5); SQUAMOUS EPITHELIAL CELL,UR RARE Squamous (<= Few); WBC,URINE 0-3 /HPF (0-3)
[2022-10-09 13:51] LABS: MUCUS,URINE Moderate Strands
[2022-10-09] MEDS ORDERED: iohexoL-300 100 ML VIAL ONE (13:54)
[2022-10-09] MEDS ORDERED: diazePAM INJ 5 MG/ML SYRINGE IVP STA (14:33)
[2022-10-09] MEDS ORDERED: fentaNYL 100 MCG/2 ML VIAL IVP STA (14:34)
[2022-10-09] MEDS ORDERED: iohexoL-300 100 ML VIAL IVP ONE (15:00)
--- NOTE | 2022-10-09 15:36 | CT Report ---
PROCEDURE: ABDOMEN/PELVIS W INDICATIONS: Left hip pain, left flank lower quadrant pain CONTRAST: 100ml Omnipaque 300 TECHNIQUE: After the administration of intravenous contrast, 5 mm thick sections acquired from the diaphragms to the symphysis. 5 mm thick coronal and sagittal reformats were acquired. For radiation dose reducti on, the following was used: automated exposure control, adjustment of mA and/or kV according to silviano ent size. COMPARISON: 11/20/2014 FINDINGS: Image quality: Excellent. Lung bases and heart: Clear lungs. Small hiatal hernia. Normal size heart. Liver: 2.4 cm focus of heterogeneous enhancement in segment 7 near the dome, likely a hemangioma, not seen on the prior study given lack of contrast. Gallbladder and biliary tree: Unremarkable. No biliary dilation. Spleen: Normal size. Pancreas: Normal. Adrenals: No masses. Kidneys and ureters: Symmetric enhancement. No hydronephrosis. Bowel and peritoneum: There is marked expansion, with central hyperintensity, and fat stranding invol ving the left psoas muscle and caudally, the left iliopsoas. There is hyperdense fat stranding in the left lower quadrant anterior to this mass. Stomach and small bowel loops are normal. Moderate diverticulosis of distal descending and sigmoid co adela. Left bowel loops are displaced anteriorly and medially by the retroperitoneal hematoma. Lymph nodes: No central or retroperitoneal adenopathy. Vessels: Unremarkable. PELVIS Reproductive organs: Largely obscured by beam hardening artifact. Bladder: Partially obscured, the visible portion is grossly normal. Lymph nodes: Unremarkable. Bones: Bilateral hip arthroplasties. Other: Common iliac veins are mildly flattened suggesting low volume state. IMPRESSION: 1. Large left psoas muscle hematoma with extension into the lower left retroperitoneum. Small central hyperdensity suggests continuing active hemorrhage. 2. Distal colonic diverticulosis. 3. Probable liver dome hemangioma. Consider routine three-phase liver CT or liver MRI for confirmatio n. 4. Discussed with Dr. Jewell Joaquin in the emergency room at 1532 hours. Reviewed by: Monica Ramos MD on 10/09/2022 3:35 PM PDT Approved by: Monica Ramos MD on 10/09/2022 3:35 PM PDT Station ID: [id number]
[2022-10-09 17:09] VITALS: BP 106/80
== END 2022-10-09 17:11 | disposition short-term general hospital (02) ==
LOC: ED 12:31
DX: S70.12XA Contusion of left thigh, initial encounter (principal); X50.0XXA Overexertion from strenuous movement or load, initial encounter; Y93.K9 Activity, other involving animal care; Y92.003 Bedroom of unspecified non-institutional (private) residence as the place of occurrence of the external cause; Z87.891 Personal history of nicotine dependence
CPT/HCPCS: 36415; 74177; 80053; 81001; 83690; 85025; 96374; 96375; 96376; 99285; J1170; Q9967; 81003; 87086

== ENCOUNTER 2022-10-22 12:20 | Outpatient (CLI) | payer OTHER ==
[2022-10-22 18:10] LABS: BASOPHILS # (AUTO) 0.1 10^3/uL (0.0-0.1); BASOPHILS % (AUTO) 0.8 %; EOSINOPHILS # (AUTO) 0.2 10^3/uL (0.0-0.7); HCT - HEMATOCRIT 42.7 % (42.0-52.0); HGB - HEMOGLOBIN 13.3 g/dL (14.0-18.0); LYMPHOCYTES # (AUTO) 2.1 10^3/uL (1.5-3.5); LYMPHOCYTES % (AUTO) 18.1 %; MEAN CORPUSCULAR HEMOGLOBIN 28.7 pg (27.0-31.0); MEAN CORPUSCULAR HGB CONC 31.1 g/dL (32.0-36.0); MEAN CORPUSCULAR VOLUME 92.2 fL (80.0-94.0); MEAN PLATELET VOLUME 8.9 fL (7.4-11.4); MONOCYTES # (AUTO) 1.1 10^3/uL (0.0-1.0); MONOCYTES % (AUTO) 9.3 %; NEUTROPHILS # (AUTO) 8.1 10^3/uL (1.5-6.6); NEUTROPHILS % (AUTO) 68.9 %; PLT - PLATELET COUNT 460 10^3/uL (130-450); RED BLOOD COUNT 4.63 10^6/uL (4.70-6.10); RED CELL DISTRIBUTION WIDTH 13.5 % (12.0-15.0); WHITE BLOOD COUNT 11.7 x10^3/uL (4.8-10.8)
[2022-10-22 18:13] LABS: ALBUMIN 4.2 g/dL (3.2-5.5); ALBUMIN/GLOBULIN RATIO 1.4 (1.0-2.2); BILIRUBIN,TOTAL 0.8 mg/dL (0.2-1.0); CALCIUM 9.3 mg/dL (8.5-10.3); POTASSIUM 4.2 mmol/L (3.5-5.0); TOTAL PROTEIN 7.3 g/dL (6.7-8.2)
== END 2022-10-22 12:21 | disposition home or self-care (01) ==
LOC: LAB.N 12:20
PROVIDERS: ATTEND Nurse Practitioner
DX: R06.09 Other forms of dyspnea (principal); M79.81 Nontraumatic hematoma of soft tissue
CPT/HCPCS: 36415; 80053; 85025

== ENCOUNTER 2022-10-30 15:35 | Outpatient (CLI) | payer OTHER ==
[2022-10-30] MEDS ORDERED: iohexoL-300 100 ML VIAL ONE (16:14)
[2022-10-30] MEDS: iohexoL-300 100 ML VIAL IVP ONE (16:48)
--- NOTE | 2022-10-30 17:21 | CT Report ---
PROCEDURE: ABDOMEN W/WO INDICATIONS: HEPATIC HEMANGIOMA CONTRAST: 100ml Omnipaque 300 TECHNIQUE: 4 phase scanning was performed. After the administration of intravenous contrast, 5 mm thick section s acquired from the diaphragm to the symphysis. 5 mm coronal and sagittal reformats were acquired. For radiation dose reduction, the following was used: automated exposure control, adjustment of mA a nd/or kV according to patient size. FINDINGS: Image quality: Excellent. Liver: Noncirrhotic liver morphology. In segment 7/8 of the liver, there is a 2.4 cm lesion with sai pheral, discontinuous arterial enhancement with delayed filling, following blood pool, most consisten t with a benign hemangioma. OTHER: Lung bases and heart: Unremarkable. Gallbladder and biliary tree: No radiopaque stones or wall thickening. No biliary dilation. Spleen: No splenomegaly. Pancreas: No pancreatic ductal dilation. Adrenals: No adrenal nodule. Kidneys and ureters: No hydronephrosis. No renal cystic lesion which requires follow up. No solid mas s. Bowel and peritoneum: No bowel distension. No pathologic free fluid. Lymph nodes: No central or retroperitoneal adenopathy. Vessels: No infrarenal aortic aneurysm. Bones: No aggressive osseous abnormality. Other: Interval decrease in size of the left psoas hematoma. IMPRESSION: The previously described liver lesion corresponds to a benign hemangioma. No further follow-up indica tyler. Interval decrease in size of the left psoas hematoma. Reviewed by: Nagi Barrera on 10/30/2022 5:20 PM PDT Approved by: Nagi Barrera on 10/30/2022 5:20 PM PDT Station ID: [id number]
== END 2022-10-30 15:36 | disposition home or self-care (01) ==
LOC: DI 15:35
PROVIDERS: ATTEND Nurse Practitioner
DX: D18.03 Hemangioma of intra-abdominal structures (principal)
CPT/HCPCS: 74170; Q9967

== ENCOUNTER 2023-02-22 23:02 | Emergency (ER) | payer OTHER ==
[2023-02-22] MEDS ORDERED: ALBUTEROL NEB 2.5 MG/3 ML INH STA (23:28)
[2023-02-22] MEDS ORDERED: IPRATROPIUM/ALBUTEROL 3 ML NEB INH STA (23:28)
[2023-02-22] MEDS ORDERED: methylPREDNISolone SUCCINATE 125 MG/2 ML VIAL IVP STA (23:29)
[2023-02-22 23:42] LABS: BASOPHILS % (AUTO) 1.1 %; EOSINOPHILS % (AUTO) 9.4 %; HCT - HEMATOCRIT 44.5 % (42.0-52.0); HGB - HEMOGLOBIN 14.3 g/dL (14.0-18.0); LYMPHOCYTES % (AUTO) 18.3 %; MEAN CORPUSCULAR HGB CONC 32.1 g/dL (32.0-36.0); MEAN CORPUSCULAR VOLUME 87.3 fL (80.0-94.0); MEAN PLATELET VOLUME 9.6 fL (7.4-11.4); MONOCYTES % (AUTO) 10.1 %; NEUTROPHILS % (AUTO) 60.7 %; PLT - PLATELET COUNT 284 10^3/uL (130-450); RED CELL DISTRIBUTION WIDTH 13.7 % (12.0-15.0); WHITE BLOOD COUNT 11.2 x10^3/uL (4.8-10.8)
[2023-02-22 23:44] LABS: ABNORMAL LYMPHS % (MANUAL) 0 %
[2023-02-22 23:45] LABS: VBG HCO3 21.9 mmol/L (23-28); VBG PCO2 32.1 mmHg (41-51); VBG PH 7.452 (7.31-7.41); VBG PO2 64.5 mmHg (25-47)
[2023-02-22 23:46] LABS: VBG BASE EXCESS -1.1 mmol/L (-2 - +2); VBG OXYGEN SATURATION 93.2 % (60-80); VBG TOTAL CO2 22.9 mmol/L (24-29)
--- NOTE | 2023-02-22 23:59 | ED Physician Documentation ---
PD HPI DYSPNEA - Stated complaint Stated Complaint: SOA - Chief complaint Chief Complaint: Resp - History obtained from History obtained from: Patient - Additional information Additional information: 57-year-old man with history of asthma presents with shortness of breath for the past week with associated wheezing refractory to his home asthma medication. Patient had one-time dose of Decadron at walk-in clinic 3 days ago but states he has had worsening symptoms since then. Endorses cough productive of whitish sputum. Former smoker. Denies fever. He does endorse some chest pain with coughing but not at baseline. Denies diaphoresis, lightheadedness, nausea, abdominal pain. PD PAST MEDICAL HISTORY - Past Medical History Cardiovascular: None Respiratory: Asthma, Other Endocrine/Autoimmune: None GI: None, Other : None HEENT: Chronic hearing loss Psych: None Musculoskeletal: Rheumatoid arthritis Derm: None - Past Surgical History Past Surgical History: No General: Other Ortho: Hip replacement HEENT: Tonsil/Adenoidectomy - Present Medications Home Medications: Ambulatory Orders Medication Instructions Recorded Confirmed Albuterol Sulf [Ventolin Hfa] 18 gm IH DAILY 04/01/17 08/25/22 Beclomethasone 80 Mcg [Qvar 80] 2 puffs INH BID 04/01/17 08/25/22 Ketorolac [Toradol] 10 mg PO Q6H PRN #20 tablet 06/12/20 08/25/22 Fluticasone Propion/Salmeterol 1 each IH BID 30 Days #1 each 08/25/22 [Fluticasone-Salmeterol 250-50] Ipratropium [Atrovent] 0.5 mg INH Q6H #100 each 08/25/22 dexAMETHasone [Decadron] 4 mg PO DAILY #7 tablet 08/25/22 predniSONE [Prednisone 21-TAB dose 60 mg PO QDAC 6 Days #21 tab 02/23/23 pack] - Allergies Allergies/Adverse Reactions: Allergies Allergy/AdvReac Type Severity Reaction Status Date / Time ceftriaxone sodium * Allergy Edema Verified 10/09/22 12:34 [From Rocephin] cephalexin [From Keflex] Allergy Edema Verified 10/09/22 12:34 - Social History Does the pt smoke?: No Smoking Status: Former smoker Does the pt drink ETOH?: No Does the pt have substance abuse?: No - Immunizations Immunizations are current?: Yes - POLST Patient has POLST: No PD ED PE NORMAL - Vitals Vital signs reviewed: Yes - General General: Alert and oriented X 3, No acute distress, Well developed/nourished - HEENT HEENT: Atraumatic, PERRL, EOMI - Neck Neck: Supple, no meningeal sign - Cardiac Cardiac: RRR - Respiratory Respiratory: Other (Mild increased work of breathing. Bilateral expiratory wheezing.) - Abdomen Abdomen: Non tender, Non distended - Derm Derm: Normal color, Warm and dry Results - Vitals Vitals: Vital Signs - 24 hr 02/22/23 02/22/23 02/22/23 23:05 23:28 23:48 Temperature 37.1 C Heart Rate 89 62 70 Respiratory 22 16 16 Rate Blood Pressure 125/68 110/71 O2 Saturation 90 L 97 02/23/23 01:03 Temperature Heart Rate 86 Respiratory 16 Rate Blood Pressure 108/79 O2 Saturation 91 L Oxygen O2 Source Room air - Labs Labs: Laboratory Tests 02/22/23 02/22/23 02/22/23 23:39 23:39 23:39 WBC 11.2 H RBC 5.10 Hgb 14.3 Hct 44.5 MCV 87.3 MCH 28.0 MCHC 32.1 RDW 13.7 Plt Count 284 MPV 9.6 Neut # (Auto) Not Reportable Lymph # (Auto) Not Reportable [place] # (Auto) Not Reportable Eos # (Auto) Not Reportable Baso # (Auto) Not Reportable Absolute Nucleated RBC Not Reportable Total Counted 100 Band Neuts % (Manual) 2 Abnorm Lymph % (Manual) 0 Nucleated RBC % Not Reportable Neutrophils # (Manual) 5.7 Lymphocytes # (Manual) 2.6 Monocytes # (Manual) 1.6 H Eosinophils # (Manual) 1.3 H Basophils # (Manual) 0.0 Differential Comment MANUAL DIFFERENTIAL Platelet Estimate NORMAL (130-450,000) Platelet Morphology NORMAL APPEARANCE RBC Morph Micro Appear NORMAL APPEARANCE VBG pH 7.452 H VBG pCO2 32.1 L VBG pO2 64.5 H VBG HCO3 21.9 L VBG Total CO2 22.9 L VBG O2 Saturation 93.2 H VBG Base Excess -1.1 Sodium 139 Potassium 3.9 Chloride 108 Carbon Dioxide 24 Anion Gap 7.0 BUN 27 H Creatinine 1.4 H Estimated GFR (MDRD) 52 L Glucose 120 H Calcium 8.9 Total Bilirubin 0.5 AST 33 ALT 29 Alkaline Phosphatase 70 Total Protein 6.8 Albumin 4.0 Globulin 2.8 Albumin/Globulin Ratio 1.4 Lipase 52 H PD Medical Decision Making - ED course ED course: 57-year-old man with past medical history of asthma presents with acute asthma exacerbation tonight. Steroids administered intravenously. Lab work including CBC, abdominal panel, venous blood gas ordered and he does have a mild leukocytosis with WBC 11. His venous blood gas is not showing significant CO2 retention which is good. Patient is feeling much more comfortable after nebulizer treatment. cxr wet read noncontributory without acute pathology. Plan to discharge with prednisone prescription. Return precautions given. Plan to follow-up with primary care provider. Departure - Departure Disposition: 01 Home, Self Care Clinical Impression: Asthma, Dyspnea Condition: Good Instructions: Asthma Dc Prescriptions: predniSONE [Prednisone 21-TAB dose pack] 60 mg PO QDAC 6 Days #21 tab Comments: You were seen in the emergency department for Asthma exacerbation. Electronic prescription for prednisone sent to [facility] in [place]. Please follow-up with your primary care provider and return to the emergency department if you have any new or worsening symptoms or other concerns. Forms: PCP List
[2023-02-23 00:10] LABS: BAND NEUTROPHILS % (MANUAL) 2 %; EOSINOPHILS # (MANUAL) 1.3 10^3/uL (0-0.7); LYMPHOCYTES # (MANUAL) 2.6 10^3/uL (1.5-3.5); LYMPHOCYTES % (MANUAL) 23 %; MONOCYTES # (MANUAL) 1.6 10^3/uL (0.0-1.0); NEUTROPHILS # (MANUAL) 5.7 10^3/uL (1.5-6.6); PLATELET ESTIMATE, MANUAL NORMAL (130-450,000) (NORMAL); PLATELET MORPHOLOGY NORMAL APPEARANCE (NORMAL); RBC MORPHOLOGY (MULTIPLE) NORMAL APPEARANCE (NORMAL)
[2023-02-23 00:11] LABS: DIFFERENTIAL COMMENT MANUAL DIFFERENTIAL
[2023-02-23 00:17] LABS: ALBUMIN/GLOBULIN RATIO 1.4 (1.0-2.2); BILIRUBIN,TOTAL 0.5 mg/dL (0.2-1.0); CALCIUM 8.9 mg/dL (8.5-10.3); CREATININE 1.4 mg/dL (0.6-1.2); POTASSIUM 3.9 mmol/L (3.5-5.0); TOTAL PROTEIN 6.8 g/dL (6.7-8.2)
[2023-02-23 01:07] VITALS: BP 108/79; O2SAT 91
--- NOTE | 2023-02-23 01:51 | XRAY Report ---
PROCEDURE: Chest 1 View X-Ray INDICATIONS: Chest Pain, shortness of breath, productive cough. TECHNIQUE: One view of the chest was acquired. COMPARISON: None. FINDINGS: Surgical changes and devices: None. Lungs and pleura: No pleural effusions or pneumothorax. Lungs are clear. Mediastinum: Mediastinal contours appear normal. Heart size is normal. Bones and chest wall: No suspicious bony lesions. Overlying soft tissues appear unremarkable. IMPRESSION: No acute cardiopulmonary process. Reviewed by: Nagi Barrera on 02/23/2023 1:50 AM PDT Approved by: Nagi Barrera on 02/23/2023 1:50 AM PDT Station ID: [id number]
== END 2023-02-23 01:30 | disposition home or self-care (01) ==
LOC: ED 23:02
DX: J45.909 Unspecified asthma, uncomplicated (principal); Z87.891 Personal history of nicotine dependence
CPT/HCPCS: 36415; 80053; 82803; 83690; 85025; 94640; 96374; 99284

== ENCOUNTER 2023-03-01 14:24 | Outpatient (CLI) | payer OTHER ==
[2023-03-01] MEDS ORDERED: IOVERSOL 320 100 ML VIAL IVP ONE (15:14)
--- NOTE | 2023-03-01 20:05 | CT Report ---
PROCEDURE: CHEST W INDICATIONS: CHRONIC COUGH, WHITE CONTRAST: opti 320 100ml TECHNIQUE: After the administration of intravenous contrast, 1 mm axial images were acquired from the pulmonary apices through the posterior costophrenic angles. Axial 5 mm soft tissue kernel reconstructions were performed as well as 8 mm axial MIP and coronal and sagittal 5 mm reformations. For radiation dose reduction, the following was used: automated exposure control, adjustment of mA and/or kV according to patient size. COMPARISON: CT abdomen pelvis 10/09/2022. FINDINGS: Image quality: Good. Lungs and pleura: No consolidation. No pleural effusions. No pneumothorax. A few small pulmonary nodu les. For example: Right lower lobe pulmonary nodule measuring 0.3 cm, (3/155). Left major fissure pul monary nodule measuring is 0.5 cm, (3/132). Mild bronchial wall thickening. Increased secretions in t he right and some bronchus. Moderate paraseptal and edema at the lung apices. Mediastinum: Heart size is normal. No pericardial effusion. No large vessel abnormality. No central p ulmonary embolism. No mediastinal adenopathy by size criteria. Chest wall and lower neck: Thyroid is unremarkable. No axillary or supraclavicular adenopathy by size . Bones: No aggressive osseous abnormality. Upper Abdomen: Right dome of the liver lesion with peripheral nodular discontinuous enhancement measu ring 1.7 cm, (2/46). This is in keeping with a benign hemangioma. Hepatic steatosis. Small cyst in th e lower right kidney. No adrenal nodule. IMPRESSION: 1. Mild bronchial wall thickening. Findings likely due to mild bronchitis. 2. Mild paraseptal emphysema. 3. No consolidation. No pleural effusion. 4. Hepatic steatosis. Small benign hemangioma in the liver. Reviewed by: Rl Amaro MD on 03/01/2023 8:04 PM PDT Approved by: Rl Amaro MD on 03/01/2023 8:04 PM PDT Station ID: [id number]
== END 2023-03-01 14:25 | disposition home or self-care (01) ==
LOC: DI 14:24
PROVIDERS: ATTEND Family Medicine
DX: R05.3 Chronic cough (principal); R06.09 Other forms of dyspnea; J43.8 Other emphysema; K76.0 Fatty (change of) liver, not elsewhere classified; D18.09 Hemangioma of other sites
CPT/HCPCS: 71260; Q9967

== ENCOUNTER 2023-03-10 05:22 | Emergency (ER) | payer OTHER ==
--- NOTE | 2023-03-10 05:25 | ED Physician Documentation ---
PD HPI DYSPNEA - Stated complaint Stated Complaint: SOA - History obtained from History obtained from: Patient - Additional information Additional information: HPI from patient. Patient complains of dyspnea, cough. He had the symptoms, albeit mild, yesterday. However, at approximately 1:30 this morning, the symptoms were significantly worse. He used his Combivent inhaler as well as a DuoNeb. These measures did not result in adequate relief and thus he presents to the emergency department. Patient says he was recently diagnosed with COPD. He does not use oxygen at home. Patient was treated and released from this emergency department at the beginning of this month for similar symptoms; he says he had significant improvement while he was on the prescribed steroid taper. Denies chest pain, denies fever. Review of Systems Constitutional: denies: Fever Cardiac: denies: Chest pain / pressure Respiratory: reports: Dyspnea, Cough, Wheezing. denies: Hemoptysis PD PAST MEDICAL HISTORY - Past Medical History Cardiovascular: None Respiratory: Asthma, Other Endocrine/Autoimmune: None GI: None, Other : None HEENT: Chronic hearing loss Psych: None Musculoskeletal: Rheumatoid arthritis Derm: None - Past Surgical History Past Surgical History: No General: Other Ortho: Hip replacement HEENT: Tonsil/Adenoidectomy - Present Medications Home Medications: Ambulatory Orders Medication Instructions Recorded Confirmed Albuterol Sulf [Ventolin Hfa] 18 gm IH DAILY 04/01/17 08/25/22 Beclomethasone 80 Mcg [Qvar 80] 2 puffs INH BID 04/01/17 08/25/22 Ketorolac [Toradol] 10 mg PO Q6H PRN #20 tablet 06/12/20 08/25/22 Fluticasone Propion/Salmeterol 1 each IH BID 30 Days #1 each 08/25/22 [Fluticasone-Salmeterol 250-50] Ipratropium [Atrovent] 0.5 mg INH Q6H #100 each 08/25/22 dexAMETHasone [Decadron] 4 mg PO DAILY #7 tablet 08/25/22 predniSONE [Prednisone 21-TAB dose 60 mg PO QDAC 6 Days #21 tab 02/23/23 pack] Doxycycline Hyclate 100 mg PO BID 7 Days #14 cap 03/10/23 dexAMETHasone [Decadron] 4 mg PO DAILY #7 tablet 03/10/23 - Allergies Allergies/Adverse Reactions: Allergies Allergy/AdvReac Type Severity Reaction Status Date / Time ceftriaxone sodium * Allergy Edema Verified 10/09/22 12:34 [From Rocephin] cephalexin [From Keflex] Allergy Edema Verified 10/09/22 12:34 - Social History Does the pt smoke?: No Smoking Status: Former smoker Does the pt drink ETOH?: No Does the pt have substance abuse?: No - Immunizations Immunizations are current?: Yes - POLST Patient has POLST: No PD ED PE NORMAL - Vitals Vital signs reviewed: Yes - General General: Alert and oriented X 3, Well developed/nourished, Other (mild-moderate respiratory distress: tachypneic, speaking in parsed sentences (2-3 words at a time)) - Cardiac Cardiac: RRR, No murmur PD ED PE EXPANDED - Respiratory Respiratory: Distress, Labored, Wheezing, Rhonchi (bilateral) Results - Vitals Vitals: Oxygen O2 Source Room air - Labs Labs: Laboratory Tests 03/10/23 03/10/23 03/10/23 05:45 05:45 05:45 WBC 11.7 H RBC 5.16 Hgb 15.0 Hct 44.8 MCV 86.8 MCH 29.1 MCHC 33.5 RDW 13.3 Plt Count 266 MPV 9.4 Neut # (Auto) Not Reportable Lymph # (Auto) Not Reportable [place] # (Auto) Not Reportable Eos # (Auto) Not Reportable Baso # (Auto) Not Reportable Absolute Nucleated RBC Not Reportable Total Counted 100 Band Neuts % (Manual) 3 Reactive Lymphs % (Man) 6 Abnorm Lymph % (Manual) 0 Nucleated RBC % Not Reportable Neutrophils # (Manual) 6.8 H Lymphocytes # (Manual) 2.5 Monocytes # (Manual) 0.8 Eosinophils # (Manual) 1.4 H Basophils # (Manual) 0.2 H Differential Comment MANUAL DIFFERENTIAL Sodium 140 Potassium 3.8 Chloride 110 Carbon Dioxide 20 L Anion Gap 10.0 BUN 18 Creatinine 1.2 Estimated GFR (MDRD) 62 L Glucose 106 H Calcium 9.2 B-Natriuretic Peptide 36 Nasal Adenovirus (PCR) Nasal B. parapertussis DNA (PCR) Nasal Coronavir 229E PCR Nasal Coronavir HKU1 PCR Nasal Coronavir NL63 PCR Nasal Coronavir OC43 PCR Nasal Enterovir/Rhinovir PCR Nasal Influenza B PCR Nasal Influenza A PCR Nasal Parainfluen 1 PCR Nasal Parainfluen 2 PCR Nasal Parainfluen 3 PCR Nasal Parainfluen 4 PCR Nasal RSV (PCR) Nasal B.pertussis DNA PCR Nasal C.pneumoniae (PCR) Steve Human Metapneumo PCR Nasal M.pneumoniae (PCR) Nasal SARS-CoV-2 (PCR) 03/10/23 07:27 WBC RBC Hgb Hct MCV MCH MCHC RDW Plt Count MPV Neut # (Auto) Lymph # (Auto) [place] # (Auto) Eos # (Auto) Baso # (Auto) Absolute Nucleated RBC Total Counted Band Neuts % (Manual) Reactive Lymphs % (Man) Abnorm Lymph % (Manual) Nucleated RBC % Neutrophils # (Manual) Lymphocytes # (Manual) Monocytes # (Manual) Eosinophils # (Manual) Basophils # (Manual) Differential Comment Sodium Potassium Chloride Carbon Dioxide Anion Gap BUN Creatinine Estimated GFR (MDRD) Glucose Calcium B-Natriuretic Peptide Nasal Adenovirus (PCR) NOT DETECTED Nasal B. parapertussis DNA (PCR) NOT DETECTED Nasal Coronavir 229E PCR NOT DETECTED Nasal Coronavir HKU1 PCR NOT DETECTED Nasal Coronavir NL63 PCR NOT DETECTED Nasal Coronavir OC43 PCR NOT DETECTED Nasal Enterovir/Rhinovir PCR NOT DETECTED Nasal Influenza B PCR NOT DETECTED Nasal Influenza A PCR NOT DETECTED Nasal Parainfluen 1 PCR NOT DETECTED Nasal Parainfluen 2 PCR NOT DETECTED Nasal Parainfluen 3 PCR NOT DETECTED Nasal Parainfluen 4 PCR NOT DETECTED Nasal RSV (PCR) NOT DETECTED Nasal B.pertussis DNA PCR NOT DETECTED Nasal C.pneumoniae (PCR) NOT DETECTED Steve Human Metapneumo PCR NOT DETECTED Nasal M.pneumoniae (PCR) NOT DETECTED Nasal SARS-CoV-2 (PCR) NOT DETECTED - Rads (name of study) chest xray Relevant Findings:: Prelim report reviewed, EMP independent interpretation of test (I reviewed these images and my interpretation is no acute cardiopulmonary disease), See rad report PD Medical Decision Making - ED course Complexity details: reviewed results, considered differential, d/w patient ED course: Patient presents with signs and symptoms suggestive of COPD exacerbation. He is given a DuoNeb followed by an albuterol neb. IV is established and he is given 10 mg of Decadron IV. He is given 1 liter NS; patient says he feels dehydrated, which is certainly a possibility from insensate losses alone (tachypnea). He has loud, bilateral rhonchi and he says his secretions have become very thick, further suggesting dehydration. Care the patient is turned over to oncoming ED physician (Dr. Lomax) at end of my shift pending disposition Departure - Departure Disposition: Home, Self Care Clinical Impression: Dyspnea, Exacerbation of reactive airway disease Condition: Stable Prescriptions: dexAMETHasone [Decadron] 4 mg PO DAILY #7 tablet Doxycycline Hyclate 100 mg PO BID 7 Days #14 cap Comments: Continue with your home nebulizer 4 times a day regularly to help with your breathing. We will add an Decadron steroid and doxycycline antibiotic for a week. I sent your prescription to your preferred pharmacy. Recheck if not improving well over the next day or 2 and resolving over 3 to 5 days. Return if worse. Forms: PCP List Discharge Date/Time: 03/10/23 09:44
[2023-03-10] MEDS ORDERED: IPRATROPIUM/ALBUTEROL 3 ML NEB INH STA (05:27)
[2023-03-10] MEDS ORDERED: SODIUM CHLORIDE 0.9% 1,000 ML IV STA (05:36)
[2023-03-10] MEDS ORDERED: DEXAMETHASONE 10 MG/ML VIAL IVP STA (05:36)
[2023-03-10 05:40] VITALS: O2SAT 98
[2023-03-10 05:50] LABS: BASOPHILS % (AUTO) 0.7 %; EOSINOPHILS % (AUTO) 12.2 %; HCT - HEMATOCRIT 44.8 % (42.0-52.0); LYMPHOCYTES % (AUTO) 15.9 %; MEAN CORPUSCULAR HEMOGLOBIN 29.1 pg (27.0-31.0); MEAN CORPUSCULAR HGB CONC 33.5 g/dL (32.0-36.0); MEAN CORPUSCULAR VOLUME 86.8 fL (80.0-94.0); MEAN PLATELET VOLUME 9.4 fL (7.4-11.4); MONOCYTES % (AUTO) 8.3 %; NEUTROPHILS % (AUTO) 62.6 %; PLT - PLATELET COUNT 266 10^3/uL (130-450); RED BLOOD COUNT 5.16 10^6/uL (4.70-6.10); RED CELL DISTRIBUTION WIDTH 13.3 % (12.0-15.0); WHITE BLOOD COUNT 11.7 x10^3/uL (4.8-10.8)
[2023-03-10 05:55] LABS: ABNORMAL LYMPHS % (MANUAL) 0 %
[2023-03-10 06:07] VITALS: BP 117/99
[2023-03-10 06:19] LABS: BAND NEUTROPHILS % (MANUAL) 3 %; BASOPHILS # (MANUAL) 0.2 10^3/uL (0-0.1); BASOPHILS % (MANUAL) 2 %; EOSINOPHILS # (MANUAL) 1.4 10^3/uL (0-0.7); LYMPHOCYTES # (MANUAL) 2.5 10^3/uL (1.5-3.5); LYMPHOCYTES % (MANUAL) 15 %; MONOCYTES # (MANUAL) 0.8 10^3/uL (0.0-1.0); NEUTROPHILS # (MANUAL) 6.8 10^3/uL (1.5-6.6); REACTIVE LYMPHS % (MANUAL) 6 %
[2023-03-10 06:20] LABS: DIFFERENTIAL COMMENT MANUAL DIFFERENTIAL
[2023-03-10 06:23] LABS: CALCIUM 9.2 mg/dL (8.5-10.3); CREATININE 1.2 mg/dL (0.6-1.3); POTASSIUM 3.8 mmol/L (3.5-4.5)
[2023-03-10] MEDS ORDERED: ALBUTEROL NEB 2.5 MG/3 ML INH STA (06:48)
[2023-03-10 08:33] LABS: B. PARAPERTUSSIS- RESP PCR PAN NOT DETECTED; B. PERTUSSIS- RESP PCR PANEL NOT DETECTED; C. PNEUMONIAE- RESP PCR PANEL NOT DETECTED; CORONAVIRUS 229E-RESP PCR NOT DETECTED; CORONAVIRUS HKU1-RESP PCR NOT DETECTED; CORONAVIRUS NL63-RESP PCR NOT DETECTED; CORONAVIRUS OC43-RESP PCR NOT DETECTED; HUMAN METAPNEUMOVIRUS NOT DETECTED; INFLUENZA A- RESP PCR PANEL NOT DETECTED; INFLUENZA B - RESP PCR PANEL NOT DETECTED; M. PNEUMONIAE- RESP PCR PANEL NOT DETECTED; PARAINFLUENZA VIRUS 1 NOT DETECTED; PARAINFLUENZA VIRUS 2 NOT DETECTED; PARAINFLUENZA VIRUS 3 NOT DETECTED; PARAINFLUENZA VIRUS 4 NOT DETECTED; RHINOVIRUS/ENTEROVIRUS NOT DETECTED; RSV- RESP PCR PANEL NOT DETECTED; SARS-CoV-2 -RESP PCR PANEL NOT DETECTED
[2023-03-10] MEDS ORDERED: DOXYCYCLINE 100 MG TABLET PO STA (08:34)
--- NOTE | 2023-03-10 09:09 | XRAY Report ---
PROCEDURE: Chest 1 View X-Ray INDICATIONS: dyspnea TECHNIQUE: One view of the chest was acquired. COMPARISON: 02/23/2023 FINDINGS: Surgical changes and devices: None. Lungs and pleura: No pleural effusions or pneumothorax. Lungs are clear. Mediastinum: Mediastinal contours appear normal. Heart size is normal. Bones and chest wall: No suspicious bony lesions. Overlying soft tissues appear unremarkable. IMPRESSION: No acute process. Reviewed by: Raimundo Saunders MD on 03/10/2023 9:08 AM PDT Approved by: Raimundo Saunders MD on 03/10/2023 9:08 AM PDT Station ID: [id number]
--- NOTE | 2023-03-10 18:01 | ED Physician Documentation ---
ED Addendum - Addendum Addendum: 03/10/23 17:57 The patient was getting nebulizer treatments at the time of shift change. Signed out to me was exacerbation of reactive airway disease/emphysema. Refer to the initial ED physician note. On assessment of the patient, he was finishing an repeat nebulizer treatment and states he was feeling moderate improvement. He still had some expiratory wheezes was able to talk in full sentences. Oxygenation is good. He states he had had a little bit of cough over the last several days but no fevers per se. His chest x-ray is clear without any signs of pneumonia, fluid, nor pneumothorax. The patient states he was feeling improved reasonably well. He does have nebulizer and inhalers at home. He had been given a steroid dosing here. We did discuss the common recommendation of a antibiotic for COPD/emphysema exacerbations and in particular since its not obvious he has a viral infection per se. The patient was comfortable with this. We gave initial doses here and prescription was sent to his pharmacy. Disposition: The patient discharged home in stable condition. Diagnoses: 1. Dyspnea 2. Acute exacerbation of reactive airway disease/emphysema 3. Upper respiratory infection
== END 2023-03-10 09:44 | disposition home or self-care (01) ==
LOC: ED 05:22
DX: J45.901 Unspecified asthma with (acute) exacerbation (principal); J06.9 Acute upper respiratory infection, unspecified; Z87.891 Personal history of nicotine dependence; Z20.822 Contact with and (suspected) exposure to COVID-19
CPT/HCPCS: 36415; 71045; 80048; 83880; 85025; 87633; 94640; 96374; 99284; A9270

== ENCOUNTER 2023-04-13 08:00 | Outpatient (CLI) | payer OTHER ==
[2023-04-13 19:27] LABS: BASOPHILS # (AUTO) 0.1 10^3/uL (0.0-0.1); BASOPHILS % (AUTO) 0.7 %; EOSINOPHILS # (AUTO) 0.7 10^3/uL (0.0-0.7); EOSINOPHILS % (AUTO) 6.3 %; HCT - HEMATOCRIT 47.7 % (42.0-52.0); HGB - HEMOGLOBIN 15.1 g/dL (14.0-18.0); LYMPHOCYTES # (AUTO) 1.4 10^3/uL (1.5-3.5); LYMPHOCYTES % (AUTO) 12.5 %; MEAN CORPUSCULAR HEMOGLOBIN 28.6 pg (27.0-31.0); MEAN CORPUSCULAR HGB CONC 31.7 g/dL (32.0-36.0); MEAN CORPUSCULAR VOLUME 90.3 fL (80.0-94.0); MEAN PLATELET VOLUME 9.5 fL (7.4-11.4); MONOCYTES % (AUTO) 8.5 %; NEUTROPHILS # (AUTO) 8.1 10^3/uL (1.5-6.6); NEUTROPHILS % (AUTO) 71.6 %; PLT - PLATELET COUNT 298 10^3/uL (130-450); RED BLOOD COUNT 5.28 10^6/uL (4.70-6.10); RED CELL DISTRIBUTION WIDTH 13.5 % (12.0-15.0); WHITE BLOOD COUNT 11.2 x10^3/uL (4.8-10.8)
[2023-04-13 19:43] LABS: ALBUMIN 4.4 g/dL (3.2-5.5); ALBUMIN/GLOBULIN RATIO 1.7 (1.0-2.2); BILIRUBIN,TOTAL 0.8 mg/dL (0.2-1.0); CALCIUM 9.4 mg/dL (8.5-10.3); CREATININE 1.3 mg/dL (0.6-1.3); CRP - C-REACTIVE PROTEIN 1.3 mg/dL (<0.5)
[2023-04-13 19:55] LABS: THYROID STIMULATING HORMONE 1.28 uIU/mL (0.34-5.60)
[2023-04-16 16:08] LABS: ANTINUCLEAR ANTIBODIES IFA Negative (.)
== END 2023-04-13 23:59 | disposition home or self-care (01) ==
LOC: LAB.N 08:00
PROVIDERS: ATTEND Registered Nurse
DX: R06.02 Shortness of breath (principal); R07.81 Pleurodynia; R05.1 Acute cough
CPT/HCPCS: 36415; 80053; 81599; 83090; 83880; 84443; 85025; 85240; 85300; 85307; 85379; 85651; 86038; 86140

== ENCOUNTER 2023-06-19 15:12 | Outpatient (CLI) | payer OTHER ==
[2023-06-19 15:22] LABS: BASOPHILS # (AUTO) 0.1 10^3/uL (0.0-0.1); BASOPHILS % (AUTO) 0.8 %; EOSINOPHILS # (AUTO) 0.1 10^3/uL (0.0-0.7); EOSINOPHILS % (AUTO) 1.2 %; HCT - HEMATOCRIT 45.4 % (42.0-52.0); HGB - HEMOGLOBIN 14.9 g/dL (14.0-18.0); LYMPHOCYTES # (AUTO) 1.5 10^3/uL (1.5-3.5); LYMPHOCYTES % (AUTO) 15.8 %; MEAN CORPUSCULAR HEMOGLOBIN 29.2 pg (27.0-31.0); MEAN CORPUSCULAR HGB CONC 32.8 g/dL (32.0-36.0); MEAN CORPUSCULAR VOLUME 88.8 fL (80.0-94.0); MEAN PLATELET VOLUME 8.8 fL (7.4-11.4); MONOCYTES # (AUTO) 0.9 10^3/uL (0.0-1.0); MONOCYTES % (AUTO) 9.7 %; NEUTROPHILS # (AUTO) 6.7 10^3/uL (1.5-6.6); NEUTROPHILS % (AUTO) 72.1 %; PLT - PLATELET COUNT 267 10^3/uL (130-450); RED BLOOD COUNT 5.11 10^6/uL (4.70-6.10); RED CELL DISTRIBUTION WIDTH 12.8 % (12.0-15.0); WHITE BLOOD COUNT 9.3 x10^3/uL (4.8-10.8)
[2023-06-19 15:39] LABS: CHOL/HDL RATIO 3.8 (<5.0); CHOLESTEROL 169 mg/dL; HDL CHOLESTEROL 44 mg/dL; LDL CHOLESTEROL,CALCULATED 107 mg/dL; LDL/HDL RATIO 2.4 (<3.6); TRIGLYCERIDES 90 mg/dL (48-352); VLDL CHOLESTEROL 18 mg/dL
== END 2023-06-19 15:13 | disposition home or self-care (01) ==
LOC: LAB 15:12
PROVIDERS: ATTEND Nurse Practitioner
DX: D64.9 Anemia, unspecified (principal); Z13.220 Encounter for screening for lipoid disorders
CPT/HCPCS: 36415; 80061; 83721; 85025

== ENCOUNTER 2025-03-24 16:12 | Observation (INO) ==
[2025-03-24 17:18] LABS: HCT - HEMATOCRIT 44.4 % (42.0-52.0); HGB - HEMOGLOBIN 14.8 g/dL (14.0-18.0); MEAN PLATELET VOLUME 8.9 fL (7.4-11.4); NRBC ABSOLUTE COUNT (AUTO) 0.00 x10^3/uL; NUCLEATED RED BLOOD CELLS AUTO 0.0 /100WBC; PLT - PLATELET COUNT 275 10^3/uL (130-450); RED CELL DISTRIBUTION WIDTH 12.5 % (12.0-15.0)
[2025-03-24 17:31] LABS: ALT ALANINE AMINOTRANSFERASE 26.0 IU/L (10-60); AST ASPARTATE AMINOTRANSFERASE 14.0 IU/L (10-42); BUN - BLOOD UREA NITROGEN 16.0 mg/dL (6-20); CARBON DIOXIDE - CO2 30.0 mmol/L (21-32); CREATININE 1.2 mg/dL (0.6-1.3); GFR - MDRD 62.0 (>89)
[2025-03-24 20:48] LABS: OCCULT BLOOD,URINE TRACE (NEGATIVE)
[2025-03-24 20:49] LABS: GLUCOSE, URINE (UA) NEGATIVE (NEGATIVE); KETONES,URINE (UA) NEGATIVE (NEGATIVE)
[2025-03-24 21:06] LABS: SQUAMOUS EPITHELIAL CELL,UR RARE Squamous (<= Few)
[2025-03-24] MEDS: SODIUM CHLORIDE 0.9% 500 ML IV ONE (21:34)
[2025-03-24] MEDS: KETOROLAC 15 MG/ML VIAL IVP STA (22:06)
--- NOTE | 2025-03-24 23:53 | CT Report ---
PROCEDURE: CT Abdomen/Pelvis W INDICATIONS: suprapubic pain CONTRAST: 100cc [id number] TECHNIQUE: After the administration of intravenous contrast, a CT scan of the abdomen and pelvis was performed. Images were recorded and evaluated at appropriate window settings. Reformats: coronal and sagittal. For radiation dose reduction, the following was used: automated exposure control, adjustment of mA and/or kV according to patient size. COMPARISON: CT abdomen pelvis 08/09/2023. FINDINGS: Image quality: Diagnostic. Lower chest: Unremarkable. Liver: Hemangioma in the right liver measuring approximately 2.8 cm. Surrounding perfusion abnormality. Suspect hepatic steatosis. Gallbladder: No radiopaque stones or wall thickening. Biliary tree: No intrahepatic or extrahepatic dilation, accounting for age. Spleen: No splenomegaly. Pancreas: No pancreatic ductal dilation. Adrenals: No adrenal nodule. Kidneys and ureters: No hydronephrosis. No renal cystic lesion which requires follow up. No solid mass. Stomach, bowel and peritoneum: Diverticulosis. Left lower quadrant diverticulitis. Possible intramural abscess measuring 1.8 cm, (10/109). No free air is identified. Normal appendix. No small bowel obstruction. The stomach is not distended. Lymph nodes: No central or retroperitoneal adenopathy. A few shotty lymph nodes in the left lower quadrant. Vessels: No infrarenal aortic aneurysm. Patent portal vein. PELVIS Reproductive organs: Unremarkable. Bladder: No abnormal wall thickening. Pelvic lymph nodes: No pelvic adenopathy by size criteria. Bones: No aggressive osseous abnormality. Bilateral hip arthroplasties. Other: Fat-containing left inguinal hernia. IMPRESSION: 1. Left lower quadrant diverticulitis. Possible small intramural abscess measuring 1.8 cm. -Consider follow-up CT abdomen/pelvis with contrast in a few weeks. 2. No pneumoperitoneum. 3. Right liver hemangioma. Reviewed by: Rl Amaro MD on 03/24/2025 11:49 PM PDT Approved by: Rl Amaro MD on 03/24/2025 11:49 PM PDT Station ID: [id number]
--- NOTE | 2025-03-25 00:35 | ED Physician Documentation ---
PD HPI ABD PAIN Stated complaint Stated Complaint: ABD PX Chief complaint Chief Complaint: Abd Pain History obtained from History obtained from: Patient Additional information Additional information: 60yM with pmh asthma, PSH umbilical hernia repair, p/w LLQ pain X 6 days, with associated bladder spasm sensation. denies dysuria , hematuria, back pain, n/v/d or fever Meds/Allgy Home Medications Ambulatory Orders Medication Instructions Recorded Confirmed albuterol sulfate 90 mcg/actuation 18 g IH DAILY 04/0103/24/25 aerosol inhaler (Ventolin HFA) ipratropium 0.5 mg-albuterol 3 mg 3 ml inhalation QID PRN shortness 06/13/24 03/24/25 (2.5 mg base)/3 mL nebulization of breath soln ketorolac 10 mg tablet 10 mg PO Q6H PRN Pain #20 ta bs 03/04/25 03/24/25 albuterol 90 mcg-budesonide 80 2 inh inhalation TID TX N shortness 03/16/25 03/24/25 mcg/actuation HFA aerosol inhaler of breath #10.7 gram s (Airsupra) fluticasone 250 mcg-salmeterol 50 1 inh inhalation BID #180 ea 03/16/25 03/24/25 mcg/dose blistr powdr for inhalation montelukast 10 mg tablet 10 mg PO DAILY #90 tabs 02/2303/24/25 omeprazole 20 mg capsule,delayed 20 mg PO QDAY #90 cap s 03/16/25 03/24/25 release tizanidine 2 mg tablet 2 mg PO Q12H PRN muscle spas ticity 03/16/25 03/24/25 #20 tabs Allergies Allergies Allergy/AdvReac Type Severity Reaction Status Date / Time ceftriaxone sodium * (From Allergy Severe Edema Verified 03/24/25 16:50 Rocephin) cephalexin (From Keflex) Allergy Severe Edema Verified 03/24/25 16:50 PFSH Active Problems All Active Problems (Updated 03/25/25 @ 00:32 by Deja Edwards MD) Diverticulitis of intestine with abscess (Acute) Left knee pain (Acute) Pain in left hip (Acute) Pain in right hip (Acute) Fatigue (Acute) Benign essential tremor (Acute) Memory loss (Acute) Unspecified asthma, uncomplicated (Acute) GERD (gastroesophageal reflux disease) (Acute) Medical History Medical History (Updated 03/25/25 @ 00:32 by Deja Edwards MD) Rib pain on left side Diverticulitis Open metacarpal fracture Focal pneumonia History of pneumonia 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 Surgical History Surgical History (Updated 03/16/25 @ 14:07 by Bhavin Jesus, CHARO, SHERI, HATCHERY WORKER) History of hip replacement Bilateral hip arthroplasty History of bilateral total hip arthroplasty Family History Family History (Updated 03/16/25 @ 14:12 by Bhavin Jesus, CHARO, SHERI, HATCHERY WORKER) Father Heart attack Mother CAD (coronary artery disease) Social History Social History (Updated 03/16/25 @ 14:14 by Bhavin Jesus, CHARO, SHERI, HATCHERY WORKER) Smoking Status: Former smoker If you are a former smoker, when did you quit? (Date/Year): 2006 Number of Years Smoked: 20 How many cigarettes a day do you smoke? (20 cigarettes=1 Pk): 30 Second hand tobacco smoke exposure: No Do you dip or chew tobacco?: Yes Do you vape?: No Living arrangement: At home Marital Status: Living Condition: With spouse/s.o. Support Person: Yes Physical Activity: Walking Level: Independent Do you feel safe in your home environment?: Yes History of physical, verbal, emotional, or financial abuse?: No ETOH Use: None Substance Use: denies use Are you sexually active?: Yes Occupation - Current: [employer] Service: Yes Dates of Service: [id number] POLST Patient has POLST: No Exam Exam Vital Signs: Vital Signs x48h Temp Pulse Resp BP Pulse Ox 03/24/25 23:30 87 20 136/89 H 98 03/24/25 20:36 79 121/81 96 03/24/25 20:36 121/81 96 03/24/25 20:36 96 03/24/25 16:44 37.5 C 89 18 123/90 94 Constitutional normal general appearance, no apparent distress and average body habitus HENMT normocephalic, head/scalp atraumatic and oropharynx normal Eyes PERRL and EOMs intact bilaterally Neck/C-Spine visual inspection normal Respiratory breath sounds equal bilaterally, normal respiratory effort and clear to auscultation bilaterally Cardiovascular normal heart rate noted and regular rhythm noted Gastrointestinal LLQ ttp Genitourinary no CVA tenderness Results Vitals Vitals: Vital Signs - 24 hr 03/24/25 16:44 03/24/25 20:36 03/24/25 20:36 Temperature 37.5 C Temperature Source Skin Pulse Rate 89 Respiratory Rate 18 Blood Pressure 123/90 121/81 O2 Saturation 94 96 96 Oxygen Delivery Method O2 Source Room air Pain Intensity 7 03/24/25 20:36 03/24/25 22:06 03/24/25 23:30 Temperature Temperature Source Pulse Rate 79 87 Respiratory Rate 20 Blood Pressure 121/81 136/89 H O2 Saturation 96 98 Oxygen Delivery Method O2 Source Room air Room air Pain Intensity 8 03/24/25 23:49 03/24/25 23:50 03/24/25 23:50 Temperature Temperature Source Pulse Rate Respiratory Rate Blood Pressure O2 Saturation Oxygen Delivery Method Room Air O2 Source Pain Intensity 5 5 Oxygen O2 Source Room air Labs Labs: Laboratory Tests 03/24/25 03/24/25 16:50 17:12 WBC 13.4 H RBC 5.09 Hgb 14.8 Hct 44.4 MCV 87.2 MCH 29.1 MCHC 33.3 RDW 12.5 Plt Count 275 MPV 8.9 Neut # (Auto) 10.4 H Lymph # (Auto) 1.5 [place] # (Auto) 1.2 H Eos # (Auto) 0.1 Baso # (Auto) 0.0 Absolute Nucleated RBC 0.00 Nucleated RBC % 0.0 Sodium 136 Potassium 4.0 Chloride 101 Carbon Dioxide 30 Anion Gap 5.0 L BUN 16 Creatinine 1.2 Estimated GFR (MDRD) 62 L Glucose 108 H Calcium 9.2 Total Bilirubin 0.6 AST 14 ALT 26 Alkaline Phosphatase 73 Total Protein 7.2 Albumin 4.2 Globulin 3.0 Albumin/Globulin Ratio 1.4 Lipase 43 Urine Color LIGHT YELLOW Urine Clarity CLEAR Urine pH 6.0 Ur Specific [place] 1.010 Urine Protein NEGATIVE Urine Glucose (UA) NEGATIVE Urine Ketones NEGATIVE Urine Occult Blood TRACE Urine Nitrite NEGATIVE Urine Bilirubin NEGATIVE Urine Urobilinogen 0.2 (NORMAL) Ur Leukocyte Esterase NEGATIVE Urine RBC 0-5 Urine WBC 0-3 Ur Squamous Epith Cells RARE Squamous Urine Bacteria Rare Ur Microscopic Review INDICATED Urine Culture Comments NOT INDICATED PD Medical Decision Making ED course ED course: 60yM p/w LLQ pain c/w diverticulitis with abscess as detected on ct. d/w Dr. Ayon, surgeon publications editor who requests admission to medicine. he will consult in on patient's case in the morning. Discharge Plan Discharge Patient Disposition: 66 [facility] DC/Xfer Condition: Fair Clinical Impression: Diverticulitis of intestine with abscess Prescriptions: No Action ketorolac 10 mg tablet 10 mg PO Q6H PRN (Reason: Pain) Qty: 20 3RF albuterol sulfate [Ventolin HFA] 200 PUFFS/18 GM HFA aerosol inhaler 18 g IH DAILY ipratropium bromide 0.02 % solution 0.5 mg inhalation ONCE Qty: 2.5 0RF ipratropium-albuterol 0.5 mg-3 mg(2.5 mg base)/3 mL solution for nebulization 3 ml inhalation QID PRN (Reason: shortness of breath) montelukast 10 mg tablet 10 mg PO DAILY Qty: 90 3RF omeprazole 20 mg capsule,delayed release(DR/EC) 20 mg PO QDAY Qty: 90 3RF Airsupra 90-80 mcg/actuation HFA aerosol inhaler 2 inh inhalation TID PRN (Reason: shortness of breath) Qty: 10.7 6RF fluticasone propion-salmeterol 250-50 mcg/dose blister with device 1 inh inhalation BID Qty: 180 3RF Rx Instructions: Inhalation 1 twice daily tizanidine 2 mg tablet 2 mg PO Q12H PRN (Reason: muscle spasticity) Qty: 20 1RF Rx Instructions: Take at night for severe pain may make you drowsy Print Language: Niuean
[2025-03-25] MEDS: HYDROmorphone 1 MG/ML CARPUJECT IVP STA (01:01)
[2025-03-25] MEDS: SODIUM CHLORIDE 0.9% 500 ML IV ONE (01:01)
[2025-03-25] MEDS: PIPERACILLIN/TAZOBACTAM 3.375 GM in SODIUM CHLORIDE 0.9% MINIBAG 100 ML IV STA (01:01)
[2025-03-25] MEDS ORDERED: NON FORMULARY MED (Albuterol-Budesonide [Airsupra] 90-80 mcg/actuation HFA aerosol inhaler INH PRN (02:03)
[2025-03-25] MEDS ORDERED: IPRATROPIUM/ALBUTEROL 3 ML NEB INH PRN (02:03)
[2025-03-25] MEDS ORDERED: tiZANidine 4 MG TABLET PO PRN (02:03)
[2025-03-25] MEDS ORDERED: ACETAMINOPHEN 325 MG TABLET PO PRN (02:05)
[2025-03-25] MEDS ORDERED: ONDANSETRON 4 MG/2 ML VIAL IVP PRN (02:05)
[2025-03-25] MEDS ORDERED: NITROGLYCERIN SL 0.4 MG TABLET SL PRN (02:05)
[2025-03-25] MEDS ORDERED: PHENOL THROAT SPRAY 177 ML MM PRN (02:05)
[2025-03-25] MEDS ORDERED: CARBOXYMETHYLCELLULOSE OPHTH DROPS EACHEYE PRN (02:07)
[2025-03-25] MEDS ORDERED: WITCH HAZEL/GLYCERIN 1 PAD TOP PRN (02:07)
[2025-03-25] MEDS ORDERED: CALAMINE/ZINC OXIDE 177 ML BOTTLE TOP PRN (02:07)
[2025-03-25] MEDS ORDERED: NON FORMULARY MED (Omeprazole 20 mg capsule,delayed release(DR/EC)) PO SCH (02:15)
--- NOTE | 2025-03-25 02:54 | HISTORY & PHYSICAL EXAMINATION ---
Chief Complaint Chief Complaint Chief Complaint: abd pain, nausea, vomiting History of Present Illness History of Present Illness HPI Comment/Other: pt with LLQ abd pain, nausea, vomiting for the past week without inciting factors. had generalized abdominal pain that would rate to his bladder causing spasms, making him think he was having a UTI. no chest pain or sob. no dysuria. no diarrhead but has had constipation. no abdominal trauma. was drinking coconut water to help with his symptoms but no relief. h/o umbilical hernia repair Review of Systems Status of ROS: 10 or more systems reviewed and unremarkable except as noted in history and below PFSH Active Problems All Active Problems (Updated 03/25/25 @ 00:32 by Deja Edwards MD) Diverticulitis of intestine with abscess (Acute) Left knee pain (Acute) Pain in left hip (Acute) Pain in right hip (Acute) Fatigue (Acute) Benign essential tremor (Acute) Memory loss (Acute) Unspecified asthma, uncomplicated (Acute) GERD (gastroesophageal reflux disease) (Acute) Medical History Medical History (Updated 03/25/25 @ 00:32 by Deja Edwards MD) Rib pain on left side Diverticulitis Open metacarpal fracture Focal pneumonia History of pneumonia 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 Surgical History Surgical History (Updated 03/16/25 @ 14:07 by Bhavin Jesus DNP, SHERI, MANUFACTURING WEAVER) History of hip replacement Bilateral hip arthroplasty History of bilateral total hip arthroplasty Family History Family History (Updated 03/16/25 @ 14:12 by Bhavin Jesus DNP, HOSPITALITY INTERN, MANUFACTURING WEAVER) Father Heart attack Mother CAD (coronary artery disease) Social History Social History (Updated 03/16/25 @ 14:14 by Bhavin Jesus DNP, HOSPITALITY INTERN, MANUFACTURING WEAVER) Smoking Status: Former smoker If you are a former smoker, when did you quit? (Date/Year): 2006 Number of Years Smoked: 20 How many cigarettes a day do you smoke? (20 cigarettes=1 Pk): 30 Second hand tobacco smoke exposure: No Do you dip or chew tobacco?: Yes Do you vape?: No Living arrangement: At home Marital Status: Living Condition: With spouse/s.o. Support Person: Yes Physical Activity: Walking Level: Independent Do you feel safe in your home environment?: Yes History of physical, verbal, emotional, or financial abuse?: No ETOH Use: None Substance Use: denies use Are you sexually active?: Yes Occupation - Current: [employer] Service: Yes Dates of Service: [phone] POLST Patient has POLST: No Meds/Allgy Home Medications Ambulatory Orders Medication Instructions Recorded Confirmed albuterol sulfate 90 mcg/actuation 18 g IH DAILY 04/0103/24/25 aerosol inhaler (Ventolin HFA) ipratropium 0.5 mg-albuterol 3 mg 3 ml inhalation QID PRN shortness 06/13/24 03/24/25 (2.5 mg base)/3 mL nebulization of breath soln ketorolac 10 mg tablet 10 mg PO Q6H PRN Pain #20 ta bs 03/04/25 03/24/25 albuterol 90 mcg-budesonide 80 2 inh inhalation TID GA N shortness 03/16/25 03/24/25 mcg/actuation HFA aerosol inhaler of breath #10.7 gram s (Airsupra) fluticasone 250 mcg-salmeterol 50 1 inh inhalation BID #180 ea 03/16/25 03/24/25 mcg/dose blistr powdr for inhalation montelukast 10 mg tablet 10 mg PO DAILY #90 tabs 02/2303/24/25 omeprazole 20 mg capsule,delayed 20 mg PO QDAY #90 cap s 03/16/25 03/24/25 release tizanidine 2 mg tablet 2 mg PO Q12H PRN muscle spas ticity 03/16/25 03/24/25 #20 tabs Allergies Allergies Allergy/AdvReac Type Severity Reaction Status Date / Time ceftriaxone sodium * (From Allergy Severe Edema Verified 03/24/25 16:50 Rocephin) cephalexin (From Keflex) Allergy Severe Edema Verified 03/24/25 16:50 Exam Exam Vital Signs: Vital Signs x48h Pulse Resp BP Pulse Ox 03/25/25 02:51 89 20 126/87 98 03/25/25 01:00 78 20 133/78 H 98 03/24/25 23:30 87 20 136/89 H 98 03/24/25 20:36 79 121/81 96 03/24/25 20:36 121/81 96 10/01/25 20:36 96 gen - aaox3, nad, polite heent - eomi, nc/at heart - per ed charting lungs - no obvious distress or retractions abd - details per ed charting msk - no obvious pathology Conclusion/Plan Problem List (1) Diverticulitis of intestine with abscess: Lab Results 03/24/25 17:12 03/24/25 17:12 Other Other Results/Comments: pt with - - acute abdominal pain in setting acute diverticulitis + abscess no obvious perforation noted zosyn, ivf, pain control gen surg on case - nausea / vomiting in setting of above zofran prn, ivf, supportive mgmt - copd continue home meds stopped smoking 30+ yr ago further orders per clinical course
[2025-03-25] MEDS: LACTATED RINGERS 1,000 ML IV SCH (03:55)
[2025-03-25] MEDS: MORPHINE 2 MG/ML CARPUJECT IVP PRN (03:55)
[2025-03-25] MEDS: PIPERACILLIN/TAZOBACTAM 3.375 GM in SODIUM CHLORIDE 0.9% MINIBAG 100 ML IV SCH (04:11)
[2025-03-25 05:41] LABS: HCT - HEMATOCRIT 39.3 % (42.0-52.0); HGB - HEMOGLOBIN 13.0 g/dL (14.0-18.0); MEAN PLATELET VOLUME 9.6 fL (7.4-11.4); NRBC ABSOLUTE COUNT (AUTO) 0.00 x10^3/uL; NUCLEATED RED BLOOD CELLS AUTO 0.0 /100WBC; PLT - PLATELET COUNT 240 10^3/uL (130-450); RED CELL DISTRIBUTION WIDTH 12.6 % (12.0-15.0)
[2025-03-25 06:11] LABS: CHOL/HDL RATIO 3.4 (<5.0); LDL/HDL RATIO 2.0 (<3.6); VLDL CHOLESTEROL 13 mg/dL
[2025-03-25 06:17] LABS: ALT ALANINE AMINOTRANSFERASE 23.0 IU/L (10-60); AST ASPARTATE AMINOTRANSFERASE 13.0 IU/L (10-42); BUN - BLOOD UREA NITROGEN 16.0 mg/dL (6-20); CARBON DIOXIDE - CO2 26.0 mmol/L (21-32); CREATININE 1.1 mg/dL (0.6-1.3); GFR - MDRD 68.0 (>89)
--- NOTE | 2025-03-25 07:27 | PROVIDER PROGRESS NOTE ---
Subjective Prog Note Date Prog Note Date: 03/25/25 Prog Note Time: 07:25 Subjective Subjective: Brief progress note on this gentleman who was just admitted a few hours ago. He is currently doing well. His vital signs have stabilized. His white count is normalized as of this morning. He is continued on IV antibiotics. He will be treated empirically with 7 days of antibiotics inclusive of IV antibiotics for diverticulitis with small undrained abscess. His pain is already improving. I am preferentially changing him from tramadol to oxycodone for narcotic management if needed. Will continue monitor labs while on toradol. Current Medications Current Medications Current Medications: Current Medications Generic Name Dose Route Start Last Admin Trade Name Freq PRN Reason Stop Dose Admin Acetaminophen 650 mg 03/25/25 02:05 Acetaminophen 325 Mg Tablet PO Q6H PRN pain, fever Albuterol/Ipratropium 3 ml 03/25/25 02:03 Ipratropium/Albuterol 3 Ml Neb INH QID PRN shortness of breath Benzonatate 100 mg 03/25/25 02:05 Benzonatate 100 Mg Capsule PO TID PRN Cough Calamine 1 applic 03/25/25 02:07 Calamine/Zinc Oxide 177 Ml Bottle TOP PRN PRN SKIN CARE Carboxymethylcellulose 1 drops 03/25/25 02:07 Carboxymethylcellulose Ophth Drops EACHEYE PRN PRN Dry Eye Lactated Ringer's 1,000 mls @ 125 mls/hr 03/25/25 03:00 03/25/25 03:55 Lr IV 125 mls/hr .Q8H ALBERT Administration Piperacillin Sod/Tazobactam 100 mls @ 25 mls/hr 03/25/25 04:00 03/25/25 04:11 Sod 3.375 gm/ Sodium Chloride IV 25 mls/hr Q8H ALBERT Administration Ketorolac Tromethamine 15 mg 03/25/25 02:05 Ketorolac 15 Mg/Ml Vial IVP 03/28/25 02:04 Q8H PRN Severe Pain (Level 7-10) Lactobacillus Rhamnosus 1 cap 03/25/25 09:00 Lactobacillus Rhamnosus Gg Capsule PO DAILY ALBERT Melatonin 3 mg 03/25/25 02:05 Melatonin 3 Mg Tablet PO QPM PRN sleep Montelukast Sodium 10 mg 03/25/25 09:00 Montelukast 10 Mg Tablet PO DAILY ALBERT Morphine Sulfate 2 mg 03/25/25 02:16 03/25/25 03:55 Morphine 2 Mg/Ml Carpuject IVP 2 mg Q4H PRN Administration pain Nitroglycerin 0.4 mg 03/25/25 02:05 Nitroglycerin Sl 0.4 Mg Tablet SL Q5MIN PRN Chest Pain Non-Formulary Medication 18 gm 03/25/25 09:00 Albuterol Sulfate [Ventolin Hfa] IH DAILY ALBERT Non-Formulary Medication 2 inh 03/25/25 02:03 Albuterol-Budesonide [Airsupra] INH TID PRN shortness of breath Non-Formulary Medication 1 inh 03/25/25 09:00 Fluticasone Propion-Salmeterol INH BID ALBERT Ondansetron HCl 4 mg 03/25/25 02:05 Ondansetron 4 Mg/2 Ml Vial IVP Q8H PRN Nausea / Vomiting Oxycodone HCl 5 mg 03/25/25 07:24 Oxycodone 5 Mg Tablet PO Q4HR PRN Moderate Pain (Level 4-6) Pantoprazole Sodium 40 mg 03/25/25 09:00 Pantoprazole 40 Mg Vial IVP DAILY [facility] Phenol/Menthol 1 sprays 03/25/25 02:05 Phenol Throat [place] 177 Ml MM Q4HR PRN Mouth Sore Pain Tizanidine HCl 2 mg 03/25/25 02:03 Tizanidine 4 Mg Tablet PO Q12H PRN muscle spasticity Witch Mariza/Glycerin 1 pad 03/25/25 02:07 Witch [place]iza/Glycerin 1 Pad TOP PRN PRN ITCHING Objective Vital Signs/Intake & Output Vital Signs: Vital Signs x48h Temp Pulse Pulse Resp BP BP Pulse Ox 03/25/25 05:50 36.5 C 96 20 110/72 97 03/25/25 03:09 36.4 C L 91 20 113/72 96 03/25/25 02:51 89 20 126/87 98 03/25/25 01:00 78 20 133/78 H 98 03/24/25 23:30 87 20 136/89 H 98 Intake & Output: Intake & Output 03/22/25 03/23/25 03/24/25 03/25/25 23:59 23:59 23:59 23:59 Intake Total 500 / 500 600 / 600 Balance 500 / 500 600 / 600 Weight (kg) 89.358 kg 90 kg Objective Comments/Other: GEN: No acute distress, tired but awakens to voice. HEENT: NC/AT, normal appearance of external ears and nose. Hearing baseline. Cardiac: Regular rate and rhythm, no murmurs. Pulm: Lungs CTA bilaterally, no cough, no wheezes. Abdomen: Soft, nontender, nondistended. TTP left lower quadrant. No rebound or guarding. Extremities: Moves all 4 extremities equally. Normal tone. Neuro: Face symmetric, no focal deficits. Gait exam deferred Psych: Mood euthymic with congruent affect. Lab Results 03/25/25 04:50 03/25/25 04:50 Other Labs: Lab Results x24hrs 03/25/25 03/25/25 03/24/25 Range/Units 04:50 00:54 17:12 WBC 8.4 13.4 H (4.8-10.8) x10^3/uL RBC 4.43 L 5.09 (4.70-6.10) 10^6/uL Hgb 13.0 L 14.8 (14.0-18.0) g/dL Hct 39.3 L 44.4 (42.0-52.0) % MCV 88.7 87.2 (80.0-94.0) fL MCH 29.3 29.1 (27.0-31.0) pg MCHC 33.1 33.3 (32.0-36.0) g/dL RDW 12.6 12.5 (12.0-15.0) % Plt Count 240 275 (130-450) 10^3/uL MPV 9.6 8.9 (7.4-11.4) fL Neut # (Auto) 5.6 10.4 H (1.5-6.6) 10^3/uL Lymph # (Auto) 1.7 1.5 (1.5-3.5) 10^3/uL [place] # (Auto) 0.9 1.2 H (0.0-1.0) 10^3/uL Eos # (Auto) 0.2 0.1 (0.0-0.7) 10^3/uL Baso # (Auto) 0.1 0.0 (0.0-0.1) 10^3/uL Absolute Nucleated RBC 0.00 0.00 x10^3/uL Nucleated RBC % 0.0 0.0 /100WBC Sodium 136 136 (135-145) mmol/L Potassium 4.0 4.0 (3.5-4.5) mmol/L Chloride 105 101 (101-111) mmol/L Carbon Dioxide 26 30 (21-32) mmol/L Anion Gap 5.0 L 5.0 L (6-13) BUN 16 16 (6-20) mg/dL Creatinine 1.1 1.2 (0.6-1.3) mg/dL Estimated GFR (MDRD) 68 L 62 L (>89) Glucose 104 108 H (74-104) mg/dL Lactic Acid 0.4 L (0.5-2.2) mmol/L Calcium 8.3 L 9.2 (8.5-10.3) mg/dL Magnesium 2.2 (1.7-2.3) mg/dL Total Bilirubin 0.9 0.6 (0.2-1.0) mg/dL AST 13 14 (10-42) IU/L ALT 23 26 (10-60) IU/L Alkaline Phosphatase 60 73 (42-121) IU/L Total Protein 6.0 L 7.2 (6.4-8.9) g/dL Albumin 3.5 4.2 (3.2-5.5) g/dL Globulin 2.5 3.0 (2.1-4.2) g/dL Albumin/Globulin Ratio 1.4 1.4 (1.0-2.2) Triglycerides 64 mg/dL Cholesterol 110 ( - 200) mg/dL LDL Cholesterol, Calc 65 ( - 129) mg/dL VLDL Cholesterol 13 mg/dL HDL Cholesterol 32 L (60 - ) mg/dL LDL/HDL Ratio 2.0 (<3.6) Cholesterol/HDL Ratio 3.4 (<5.0) Lipase 43 (11-82) U/L TSH 3.82 (0.34-5.60) uIU/mL Urine Color Urine Clarity (CLEAR) Urine pH (5.0-7.5) PH Ur Specific [place] (1.002-1.030) Urine Protein (NEGATIVE) mg/dL Urine Glucose (UA) (NEGATIVE) mg/dL Urine Ketones (NEGATIVE) mg/dL Urine Occult Blood (NEGATIVE) Urine Nitrite (NEGATIVE) Urine Bilirubin (NEGATIVE) Urine Urobilinogen (NORMAL) E.U./dL Ur Leukocyte Esterase (NEGATIVE) Urine RBC (0-5) /HPF Urine WBC (0-3) /HPF Ur Squamous Epith Cells (<= Few) Urine Bacteria (None Seen) /HPF Ur Microscopic Review Urine Culture Comments 03/24/25 Range/Units 16:50 WBC (4.8-10.8) x10^3/uL RBC (4.70-6.10) 10^6/uL Hgb (14.0-18.0) g/dL Hct (42.0-52.0) % MCV (80.0-94.0) fL MCH (27.0-31.0) pg MCHC (32.0-36.0) g/dL RDW (12.0-15.0) % Plt Count (130-450) 10^3/uL MPV (7.4-11.4) fL Neut # (Auto) (1.5-6.6) 10^3/uL Lymph # (Auto) (1.5-3.5) 10^3/uL [place] # (Auto) (0.0-1.0) 10^3/uL Eos # (Auto) (0.0-0.7) 10^3/uL Baso # (Auto) (0.0-0.1) 10^3/uL Absolute Nucleated RBC x10^3/uL Nucleated RBC % /100WBC Sodium (135-145) mmol/L Potassium (3.5-4.5) mmol/L Chloride (101-111) mmol/L Carbon Dioxide (21-32) mmol/L Anion Gap (6-13) BUN (6-20) mg/dL Creatinine (0.6-1.3) mg/dL Estimated GFR (MDRD) (>89) Glucose (74-104) mg/dL Lactic Acid (0.5-2.2) mmol/L Calcium (8.5-10.3) mg/dL Magnesium (1.7-2.3) mg/dL Total Bilirubin (0.2-1.0) mg/dL AST (10-42) IU/L ALT (10-60) IU/L Alkaline Phosphatase (42-121) IU/L Total Protein (6.4-8.9) g/dL Albumin (3.2-5.5) g/dL Globulin (2.1-4.2) g/dL Albumin/Globulin Ratio (1.0-2.2) Triglycerides mg/dL Cholesterol ( - 200) mg/dL LDL Cholesterol, Calc ( - 129) mg/dL VLDL Cholesterol mg/dL HDL Cholesterol (60 - ) mg/dL LDL/HDL Ratio (<3.6) Cholesterol/HDL Ratio (<5.0) Lipase (11-82) U/L TSH (0.34-5.60) uIU/mL Urine Color LIGHT YELLOW Urine Clarity CLEAR (CLEAR) Urine pH 6.0 (5.0-7.5) PH Ur Specific [place] 1.010 (1.002-1.030) Urine Protein NEGATIVE (NEGATIVE) mg/dL Urine Glucose (UA) NEGATIVE (NEGATIVE) mg/dL Urine Ketones NEGATIVE (NEGATIVE) mg/dL Urine Occult Blood TRACE (NEGATIVE) Urine Nitrite NEGATIVE (NEGATIVE) Urine Bilirubin NEGATIVE (NEGATIVE) Urine Urobilinogen 0.2 (NORMAL) (NORMAL) E.U./dL Ur Leukocyte Esterase NEGATIVE (NEGATIVE) Urine RBC 0-5 (0-5) /HPF Urine WBC 0-3 (0-3) /HPF Ur Squamous Epith Cells RARE Squamous (<= Few) Urine Bacteria Rare (None Seen) /HPF Ur Microscopic Review INDICATED Urine Culture Comments NOT INDICATED Diagnostic Imaging Diagnostic Imaging Results: positive Final report reviewed and Read independently (Small abscess in the colonic wall. Evidence of diverticulitis.) Assessment/Plan Problem List (1) Diverticulitis of intestine with abscess: Impression: Patient is already starting to improve. His white count is resolved. He is eager to take an oral intake. His pain is still present, but managed at this time. I discussed this case with general surgery on-call today, no acute intervention from their perspective. Agree with plan below. - Advancing diet to full liquid - Continue with IV antibiotics with Zosyn - Discharge on Augmentin to complete 7-day course - General Surgery following, will certainly follow-up after hospitalization if patient needs colonoscopy - Continue pain management with Tylenol, opiates
--- NOTE | 2025-03-25 07:40 | CONSULTATION NOTE ---
Referring Provider Name of Referring Provider:: Dr. Edwards Consult Date: 03/25/25 Chief Complaint Chief Complaint Chief Complaint: LLQ Abdominal pain and bladder spasm History of Present Illness History Obtained From History obtained from: Patient History of Present Illness HPI Comment/Other: 60 yo M w/ pmh of asthma and past surgical history of umbilical hernia repair who presented to the ED on 03/25 with LLQ abdominal pain for 6 days with associated bladder spasm. He also had associated nausea and vomiting. Continued to have bowel function and tolerate PO intake. Was concerned he had a UTI with the bladder spasms he was experiencing. His last colonoscopy was 2021 and demonstrated poor prep and significant sigmoid diverticulosis. He denies any family history of ulcerative colitis, Crohns disease or colorectal carcinoma. States he had an episode of diverticulitis ~4 years ago but at that time was more of just LLQ pain without bladder spasm. Since admission to the hospital his WBC has normalized and his pain is mildly improved. PFSH Active Problems All Active Problems (Updated 03/25/25 @ 07:47 by Cyrus Ayon MD) Diverticulitis of intestine with abscess (Acute) Left knee pain (Acute) Pain in left hip (Acute) Pain in right hip (Acute) Fatigue (Acute) Benign essential tremor (Acute) Memory loss (Acute) Unspecified asthma, uncomplicated (Acute) GERD (gastroesophageal reflux disease) (Acute) Medical History Medical History (Updated 03/25/25 @ 07:47 by Cyrus Ayon MD) Tinnitus of both ears COPD (chronic obstructive pulmonary disease) EDWARD (obstructive sleep apnea) PTSD (post-traumatic stress disorder) Anxiety Depression Rib pain on left side Diverticulitis Open metacarpal fracture Focal pneumonia History of pneumonia 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 Surgical History Surgical History (Updated 03/25/25 @ 03:34 by Dori Moctezuma RN) History of placement of ear tubes History of cystoscopy History of adenoidectomy History of tonsillectomy History of umbilical hernia repair History of hip replacement Bilateral hip arthroplasty History of bilateral total hip arthroplasty Family History Family History (Updated 03/16/25 @ 14:12 by Bhavin Jesus, CHARO, RESERVATIONS AGENT, INTERNATIONAL GUEST COORDINATOR) Father Heart attack Mother CAD (coronary artery disease) Social History Social History (Updated 03/16/25 @ 14:14 by Bhavin Jesus, DNP, RESERVATIONS AGENT, INTERNATIONAL GUEST COORDINATOR) Smoking Status: Former smoker If you are a former smoker, when did you quit? (Date/Year): 2004 Number of Years Smoked: 20 How many cigarettes a day do you smoke? (20 cigarettes=1 Pk): 20 Second hand tobacco smoke exposure: No Do you dip or chew tobacco?: Yes Do you vape?: No Patient requests smoking cessation consult: No Initiate information on smoking cessation: No Living arrangement: At home Marital Status: Living Condition: With spouse/s.o. Support Person: Yes Physical Activity: Walking Level: Independent Do you feel safe in your home environment?: Yes History of physical, verbal, emotional, or financial abuse?: No ETOH Use: None Substance Use: denies use Are you sexually active?: Yes Occupation - Current: [employer] Service: Yes Dates of Service: [phone] POLST Patient has POLST: No Meds/Allgy Home Medications Ambulatory Orders Medication Instructions Recorded Confirmed albuterol sulfate 90 mcg/actuation 18 g IH DAILY 04/0103/25/25 aerosol inhaler (Ventolin HFA) ipratropium 0.5 mg-albuterol 3 mg 3 ml inhalation QID PRN shortness 06/13/24 03/25/25 (2.5 mg base)/3 mL nebulization of breath soln ketorolac 10 mg tablet 10 mg PO Q6H PRN Pain #20 ta bs 03/04/25 03/24/25 albuterol 90 mcg-budesonide 80 2 inh inhalation TID FL N shortness 03/16/25 03/25/25 mcg/actuation HFA aerosol inhaler of breath #10.7 gram s (Airsupra) fluticasone 250 mcg-salmeterol 50 1 inh inhalation BID #180 ea 03/16/25 03/24/25 mcg/dose blistr powdr for inhalation montelukast 10 mg tablet 10 mg PO DAILY #90 tabs 02/2303/24/25 omeprazole 20 mg capsule,delayed 20 mg PO QDAY #90 cap s 03/16/25 03/24/25 release tizanidine 2 mg tablet 2 mg PO Q12H PRN muscle spas ticity 03/16/25 03/24/25 #20 tabs Allergies Allergies Allergy/AdvReac Type Severity Reaction Status Date / Time ceftriaxone sodium * (From Allergy Severe Edema Verified 03/24/25 16:50 Rocephin) cephalexin (From Keflex) Allergy Severe Edema Verified 03/24/25 16:50 Results Lab Results Lab results reviewed: Yes 03/25/25 04:50 03/25/25 04:50 Other Lab Results: Lab Results x24hrs 03/25/25 03/25/25 03/24/25 Range/Units 04:50 00:54 17:12 WBC 8.4 13.4 H (4.8-10.8) x10^3/uL RBC 4.43 L 5.09 (4.70-6.10) 10^6/uL Hgb 13.0 L 14.8 (14.0-18.0) g/dL Hct 39.3 L 44.4 (42.0-52.0) % MCV 88.7 87.2 (80.0-94.0) fL MCH 29.3 29.1 (27.0-31.0) pg MCHC 33.1 33.3 (32.0-36.0) g/dL RDW 12.6 12.5 (12.0-15.0) % Plt Count 240 275 (130-450) 10^3/uL MPV 9.6 8.9 (7.4-11.4) fL Neut # (Auto) 5.6 10.4 H (1.5-6.6) 10^3/uL Lymph # (Auto) 1.7 1.5 (1.5-3.5) 10^3/uL [place] # (Auto) 0.9 1.2 H (0.0-1.0) 10^3/uL Eos # (Auto) 0.2 0.1 (0.0-0.7) 10^3/uL Baso # (Auto) 0.1 0.0 (0.0-0.1) 10^3/uL Absolute Nucleated RBC 0.00 0.00 x10^3/uL Nucleated RBC % 0.0 0.0 /100WBC Sodium 136 136 (135-145) mmol/L Potassium 4.0 4.0 (3.5-4.5) mmol/L Chloride 105 101 (101-111) mmol/L Carbon Dioxide 26 30 (21-32) mmol/L Anion Gap 5.0 L 5.0 L (6-13) BUN 16 16 (6-20) mg/dL Creatinine 1.1 1.2 (0.6-1.3) mg/dL Estimated GFR (MDRD) 68 L 62 L (>89) Glucose 104 108 H (74-104) mg/dL Lactic Acid 0.4 L (0.5-2.2) mmol/L Calcium 8.3 L 9.2 (8.5-10.3) mg/dL Magnesium 2.2 (1.7-2.3) mg/dL Total Bilirubin 0.9 0.6 (0.2-1.0) mg/dL AST 13 14 (10-42) IU/L ALT 23 26 (10-60) IU/L Alkaline Phosphatase 60 73 (42-121) IU/L Total Protein 6.0 L 7.2 (6.4-8.9) g/dL Albumin 3.5 4.2 (3.2-5.5) g/dL Globulin 2.5 3.0 (2.1-4.2) g/dL Albumin/Globulin Ratio 1.4 1.4 (1.0-2.2) Triglycerides 64 mg/dL Cholesterol 110 ( - 200) mg/dL LDL Cholesterol, Calc 65 ( - 129) mg/dL VLDL Cholesterol 13 mg/dL HDL Cholesterol 32 L (60 - ) mg/dL LDL/HDL Ratio 2.0 (<3.6) Cholesterol/HDL Ratio 3.4 (<5.0) Lipase 43 (11-82) U/L TSH 3.82 (0.34-5.60) uIU/mL Urine Color Urine Clarity (CLEAR) Urine pH (5.0-7.5) PH Ur Specific [place] (1.002-1.030) Urine Protein (NEGATIVE) mg/dL Urine Glucose (UA) (NEGATIVE) mg/dL Urine Ketones (NEGATIVE) mg/dL Urine Occult Blood (NEGATIVE) Urine Nitrite (NEGATIVE) Urine Bilirubin (NEGATIVE) Urine Urobilinogen (NORMAL) E.U./dL Ur Leukocyte Esterase (NEGATIVE) Urine RBC (0-5) /HPF Urine WBC (0-3) /HPF Ur Squamous Epith Cells (<= Few) Urine Bacteria (None Seen) /HPF Ur Microscopic Review Urine Culture Comments 03/24/25 Range/Units 16:50 WBC (4.8-10.8) x10^3/uL RBC (4.70-6.10) 10^6/uL Hgb (14.0-18.0) g/dL Hct (42.0-52.0) % MCV (80.0-94.0) fL MCH (27.0-31.0) pg MCHC (32.0-36.0) g/dL RDW (12.0-15.0) % Plt Count (130-450) 10^3/uL MPV (7.4-11.4) fL Neut # (Auto) (1.5-6.6) 10^3/uL Lymph # (Auto) (1.5-3.5) 10^3/uL [place] # (Auto) (0.0-1.0) 10^3/uL Eos # (Auto) (0.0-0.7) 10^3/uL Baso # (Auto) (0.0-0.1) 10^3/uL Absolute Nucleated RBC x10^3/uL Nucleated RBC % /100WBC Sodium (135-145) mmol/L Potassium (3.5-4.5) mmol/L Chloride (101-111) mmol/L Carbon Dioxide (21-32) mmol/L Anion Gap (6-13) BUN (6-20) mg/dL Creatinine (0.6-1.3) mg/dL Estimated GFR (MDRD) (>89) Glucose (74-104) mg/dL Lactic Acid (0.5-2.2) mmol/L Calcium (8.5-10.3) mg/dL Magnesium (1.7-2.3) mg/dL Total Bilirubin (0.2-1.0) mg/dL AST (10-42) IU/L ALT (10-60) IU/L Alkaline Phosphatase (42-121) IU/L Total Protein (6.4-8.9) g/dL Albumin (3.2-5.5) g/dL Globulin (2.1-4.2) g/dL Albumin/Globulin Ratio (1.0-2.2) Triglycerides mg/dL Cholesterol ( - 200) mg/dL LDL Cholesterol, Calc ( - 129) mg/dL VLDL Cholesterol mg/dL HDL Cholesterol (60 - ) mg/dL LDL/HDL Ratio (<3.6) Cholesterol/HDL Ratio (<5.0) Lipase (11-82) U/L TSH (0.34-5.60) uIU/mL Urine Color LIGHT YELLOW Urine Clarity CLEAR (CLEAR) Urine pH 6.0 (5.0-7.5) PH Ur Specific [place] 1.010 (1.002-1.030) Urine Protein NEGATIVE (NEGATIVE) mg/dL Urine Glucose (UA) NEGATIVE (NEGATIVE) mg/dL Urine Ketones NEGATIVE (NEGATIVE) mg/dL Urine Occult Blood TRACE (NEGATIVE) Urine Nitrite NEGATIVE (NEGATIVE) Urine Bilirubin NEGATIVE (NEGATIVE) Urine Urobilinogen 0.2 (NORMAL) (NORMAL) E.U./dL Ur Leukocyte Esterase NEGATIVE (NEGATIVE) Urine RBC 0-5 (0-5) /HPF Urine WBC 0-3 (0-3) /HPF Ur Squamous Epith Cells RARE Squamous (<= Few) Urine Bacteria Rare (None Seen) /HPF Ur Microscopic Review INDICATED Urine Culture Comments NOT INDICATED Diagnostic Imaging Results Diagnostic Imaging Results: positive Final report reviewed Review of Systems Status of ROS: 10 or more systems reviewed and unremarkable except as noted in history and below Exam Exam Vital Signs: Vital Signs x48h Temp Pulse Pulse Resp BP BP Pulse Ox 03/25/25 05:50 36.5 C 96 20 110/72 97 03/25/25 03:09 36.4 C L 91 20 113/72 96 03/25/25 02:51 89 20 126/87 98 03/25/25 01:00 78 20 133/78 H 98 Constitutional normal general appearance and no apparent distress HENMT normocephalic and head/scalp atraumatic Eyes conjunctivae normal, no scleral icterus and no nystagmus Neck/C-Spine visual inspection normal Respiratory normal respiratory effort Cardiovascular normal heart rate noted and regular rhythm noted Gastrointestinal abdomen normal to inspection (Periumbilical surgical scar consistent with umbilical hernia repair), abdomen soft to palpation and tender to palpation (LLQ) Extremities normal to inspection Neurology GCS 15 Psychiatry thought process normal, cooperative and affect normal Skin skin color normal Conclusion/Plan Problem List (1) Diverticulitis of intestine with abscess: Plan: - Continue abx; transition to PO on discharge - Diet as tolerated as pain improves - Pain and nausea control as needed - Encourage OOB/ambulation - Rest of care per primary - Will continue to follow - Will require outpatient followup for repeat colonoscopy Qualifiers: Diverticulitis bleeding: without bleeding Diverticulitis site: large intestine Qualified Code(s): K57.20 - Diverticulitis of large intestine with perforation and abscess without bleeding Lab Results Lab results reviewed: Yes 03/25/25 04:50 03/25/25 04:50 Diagnostic Imaging Results Diagnostic Imaging Results: positive Final report reviewed
[2025-03-25] MEDS: PANTOPRAZOLE 40 MG VIAL IVP SCH (08:25)
[2025-03-25] MEDS: KETOROLAC 15 MG/ML VIAL IVP PRN (08:25)
[2025-03-25] MEDS: MONTELUKAST 10 MG TABLET PO SCH (08:25)
[2025-03-25] MEDS: LACTOBACILLUS RHAMNOSUS GG CAPSULE PO SCH (08:25)
[2025-03-25] MEDS ORDERED: [UNRECOGNIZED DRUG - MIXTURE] INH SCH (09:00)
[2025-03-25 10:11] LABS: ESTIMATED AVERAGE GLUCOSE 123 mg/dL (70-100); HEMOGLOBIN A1c% 5.9 % (4.27-6.07)
[2025-03-25] MEDS: ALBUTEROL SULFATE IH SCH (11:18)
[2025-03-25] MEDS: [UNRECOGNIZED DRUG - OTHER] IH SCH (11:18)
[2025-03-25] MEDS: oxyCODONE 5 MG TABLET PO PRN (14:46)
[2025-03-25] MEDS: BENZONATATE 100 MG CAPSULE PO PRN (20:22)
[2025-03-25] MEDS: FORMOTEROL FUMARATE NEB 20 MCG/2 ML INH SCH (20:28)
[2025-03-25] MEDS: BUDESONIDE 0.5 MG/2 ML NEB INH SCH (20:29)
[2025-03-26] MEDS: MELATONIN 3 MG TABLET PO PRN (01:05)
--- NOTE | 2025-03-26 07:26 | Discharge Summary ---
"Discharge Summary Admit Date: 03/25/25 Discharge Date: 03/26/25 Discharging Provider: Brad Chase DO Primary Care Provider: Bhavin Jesus Code Status: Attempt Resuscitation DIAGNOSES Discharge Diagnoses with Status of Each Condition: Acute diverticulitis with abscess, improved GERD, chronic, stable Knee pain, chronic, stable Unspecified asthma, chronic, stable HPI History of Present Illness: pt with LLQ abd pain, nausea, vomiting for the past week without inciting factors. had generalized abdominal pain that would rate to his bladder causing spasms, making him think he was having a UTI. no chest pain or sob. no dysuria. no diarrhead but has had constipation. no abdominal trauma. was drinking coconut water to help with his symptoms but no relief. h/o umbilical hernia repair CONSULTS | PROCEDURES Consultations: General surgery Procedures: CT abdomen pelvis, 03/24 Chest x-ray 03/26 HOSPITAL COURSE Hospital Course: 60-year-old yvonne was admitted with left lower quadrant abdominal pain and nausea and vomiting with a prior history of diverticulitis. Found on imaging to have recurrent diverticulitis with a small 1.8 cm intramural abscess. Seen by general surgery. No acute intervention for the abscess. He has been started on antibiotics. Treated here with IV Zosyn, transition to levofloxacin and Flagyl at discharge. Patient will be treated with 7-day course in total of antibiotics. Is been several years since patient's last colonoscopy and he is due for screening colonoscopy. He will follow-up with general surgery for further evaluation. Relatively uncomplicated course. His white blood cell count improved very quickly. Bowel movements are unaffected. He was able to eat and drink by hospital day 1. His pain was being managed with oral analgesics by day of discharge. He has Toradol at home and this would be a reasonable anti- inflammatory for the next few days. He should follow-up for colonoscopy in the next 6 to 8 weeks. Connected with surgery this hospitalization and can get this done. reporting consultant did suggest that he may consider elective partial colectomy to avoid any future colovesicular fistula given that he is having significant referred bladder pain. However his imaging is inconsistent with significant bladder inflammation and further watchful waiting may be appropriate. Regardless he does need a colonoscopy. This was discussed with general surgery on day of discharge. Finally, the patient does have a chronic cough, but was having more productive cough on day of discharge. He typically uses inhalers and these were held during his hospitalization. Given that he was having new cough and pleuritic chest pain in the left upper lung keith, a chest x-ray was performed on day of discharge. This did not reveal any acute processes. He is being discharged on antibiotics as above. ALLERGIES Allergies Allergy/AdvReac Type Severity Reaction Status Date / Time ceftriaxone sodium * (From Allergy Severe Edema Verified 03/24/25 16:50 Rocephin) cephalexin (From Keflex) Allergy Severe Edema Verified 03/24/25 16:50 MEDICATIONS Ambulatory Orders Medication Instructions Recorded Confirmed albuterol sulfate 90 mcg/actuation 18 g IH DAILY 04/0103/25/25 aerosol inhaler (Ventolin HFA) ipratropium 0.5 mg-albuterol 3 mg 3 ml inhalation QID PRN shortness 06/13/24 03/25/25 (2.5 mg base)/3 mL nebulization of breath soln ketorolac 10 mg tablet 10 mg PO Q6H PRN Pain #20 ta bs 03/04/25 03/24/25 albuterol 90 mcg-budesonide 80 2 inh inhalation TID RI N shortness 03/16/25 03/25/25 mcg/actuation HFA aerosol inhaler of breath #10.7 gram s (Airsupra) fluticasone 250 mcg-salmeterol 50 1 inh inhalation BID #180 ea 03/16/25 03/24/25 mcg/dose blistr powdr for inhalation montelukast 10 mg tablet 10 mg PO DAILY #90 tabs 02/2303/24/25 omeprazole 20 mg capsule,delayed 20 mg PO QDAY #90 cap s 03/16/25 03/24/25 release tizanidine 2 mg tablet 2 mg PO Q12H PRN muscle spas ticity 03/16/25 03/24/25 Held on 03/26/25. #20 tabs Instructions: Resume on 03/31/25. Do not take while on levofloxacin acetaminophen 325 mg tablet 650 mg (2 x 325 mg) PO Q6H PRN 03/26/25 pain, fever #0 tabs levofloxacin 750 mg tablet 750 mg PO DAILY 5 days #5 t abs 03/26/25 metronidazole 500 mg tablet 500 mg PO Q8H 5 days #15 t abs 03/26/25 Home Medications Other | Comments: GEN: No acute distress HEENT: NC/AT, normal appearance of external ears and nose. Hearing baseline. Cardiac: Regular rate and rhythm, no murmurs. Pulm: Lungs CTA bilaterally, no cough, no wheezes. No rhonchi appreciated. Reports pleuritic chest pain with cough and left upper lung field. Abdomen: Soft. TTP in LLQ. Nondistended. No rebound tenderness or guarding. Tenderness improved from day prior. Extremities: Moves all 4 extremities equally. Normal tone. Neuro: Face symmetric, CN II through XII intact grossly. Gait exam deferred Psych: Mood euthymic with congruent affect. PHYSICAL EXAM AT DISCHARGE Vital Signs: Vital Signs x48h Temp Pulse Pulse Resp BP Pulse Ox 03/26/25 09:45 36.8 C 64 16 126/80 97 03/26/25 08:34 36.8 C 70 16 118/73 97 03/26/25 08:21 70 18 LABS 03/25/25 04:50 03/26/25 07:52 DIAGNOSTIC IMAGING Diagnostic Imaging Results: Final report reviewed and Read independently Diagnostic Imaging Results Comments: CT abdomen pelvis from 03/24 revealing of acute diverticulitis with small intramural abscess 1.8 cm. Consideration for follow-up CT AP and 4 to 6 weeks. Incidental right liver hemangioma. Chest x-ray from 03/26. No acute cardiopulmonary processes. Specifically no processes as interrogated in the area of his pleuritic pain in the left upper lung keith. FOLLOW UP Follow Up: Follow-up with general surgery, they will schedule. Follow-up with primary care in 2 to 3 weeks. TIME SPENT Time Spent in Discharge (Minutes): 41 Discharge Plan Discharge Patient Disposition: Home, Self Care Condition: Stable Medically Cleared Date:: 03/26/25 Prescriptions: New acetaminophen 325 mg Tablet 650 mg PO Q6H PRN (Reason: pain, fever) Qty: 0 0RF metronidazole 500 mg tablet 500 mg PO Q8H 5 Days Qty: 15 0RF levofloxacin 750 mg tablet 750 mg PO DAILY 5 Days Qty: 5 0RF Continued ketorolac 10 mg tablet 10 mg PO Q6H PRN (Reason: Pain) Qty: 20 3RF albuterol sulfate [Ventolin HFA] 200 PUFFS/18 GM HFA aerosol inhaler 18 g IH DAILY ipratropium bromide 0.02 % solution 0.5 mg inhalation ONCE Qty: 2.5 0RF ipratropium-albuterol 0.5 mg-3 mg(2.5 mg base)/3 mL solution for nebulization 3 ml inhalation QID PRN (Reason: shortness of breath) montelukast 10 mg tablet 10 mg PO DAILY Qty: 90 3RF omeprazole 20 mg capsule,delayed release(DR/EC) 20 mg PO QDAY Qty: 90 3RF Airsupra 90-80 mcg/actuation HFA aerosol inhaler 2 inh inhalation TID PRN (Reason: shortness of breath) Qty: 10.7 6RF fluticasone propion-salmeterol 250-50 mcg/dose blister with device 1 inh inhalation BID Qty: 180 3RF Rx Instructions: Inhalation 1 twice daily Held tizanidine 2 mg tablet 2 mg PO Q12H PRN (Reason: muscle spasticity) Qty: 20 1RF Hold Instructions: Resume on 03/31/25. Do not take while on levofloxacin Rx Instructions: Take at night for severe pain may make you drowsy Diet: Regular Interventions: Belongings Inventory Last Done: 03/25/25 02:05 Discharge Last Done: 03/26/25 10:14 Discharge Checklist - Nursing Last Done: 03/26/25 10:14 Discharge Vital Signs (30 Minutes) Last Done: 03/26/25 09:45 Health Concerns: You were admitted with diverticulitis, this is inflammation around outpouchings in your lower colon. This may be affecting your bladder. You were found to have a small pocket of infection, and abscess, associated with this. You have been started on antibiotics. The surgeons have seen you and agree that there is nothing to operate on right now. They do want to perform a colonoscopy likely in the next couple of months. In the meantime, you will be treated with a short course of antibiotics. I am glad you are able to manage your pain with just oral medications at this time. The Toradol you have at home should be effective in reducing further inflammation. Your kidney function is appropriate that you should be able to take this. Your antibiotic I am starting you on is levofloxacin and metronidazole. Please avoid taking the tizanidine that you take at home while you are on the levofloxacin as this may have a deleterious interaction. Please follow-up with general surgery for colonoscopy. You should start on a fiber supplement in about a week, we discussed either using Metamucil or Benefiber. Print Language: Romanian Patient Instructions: Metronidazole, Levofloxacin, Diverticulitis Dc Follow-up Care: Cyrus Ayon MD [Provider Admit Priv/Credential, Surgery, General] Bhavin Jesus, CHARO, [employer], [employer] [Primary Care Provider, Family Practice] Vitals documented within 30 minutes of discharge?: Yes"
--- NOTE | 2025-03-26 07:53 | PROVIDER PROGRESS NOTE ---
Progress Note Progress Note Progress Note: General Surgery Progress Note Hospital Day # 3 Code Status: Full ASSESSMENT: 1) Sigmoid diverticulitis with associated 1.5 cm sai-diverticular abscess. Clinically improved. 2) FH of colon polyps - Last CS 2021 with sigmoid diverticulosis noted and photographed. Poor bowel prep (BBPS 3) prevented detailed exam for small (< 5 mm) polyps but no malignancy or polyps seen in sigmoid region - see report for photos. 3) History of self-limited spontaneous, left psoas hematoma (2022) PLAN: 1) Maintain soft diet for next few days, then advance as tolerated 2) Oral antibiotics for 7-10 days as an out-patient 3) Fiber supplementation such as Metamucil or Citrucel daily 4) Consider repeat CS when this episode has completely resolved (4-6 weeks) due to the FH of colon polyps and the poor prep documented during his 2021 colon examination. 5) Consider elective sigmoid colectomy if his sigmoid diverticulitis recurs as he is at higher risk for the development of a colovesicle fistula given the location of his disease and its proximity to the urinary bladder. <><><><><> PERTINENT INTERVAL ISSUES: None S: Passing flatus; Ambulatory; Lower abdominal pain improved; No fever or chills OBJECTIVE: I/O: 3827/575 VS: BP 103/62; P 62; RR 16; T 36.6 EXAMINATION: MENTAL STATUS: AAO; Comfortable EYES: Pupils equal, round and reactive to light, sclera anicteric, ABD: Soft, non-distended; minimal LLQ discomfort to deep palpation; few BS EXTREMITIES: No clubbing, cyanosis, infections SKIN: Anicteric; No rashes, lesions, ulcerations LABS: WBC 8.4; H&H 13/39; PLT 240k; NA 136 ; K 4.0; Cr 1.1; Glu 104 CULTURES: Blood - NG after 1 day IMAGING: CT Abd/Pelvis 03/25/2025; 10/09/2022 All images were personally reviewed by me for this encounter. ANTIMICROBIALS: Zosyn Day 3 PAIN CONTROL: Morphine IV prn, Oxycodone PO prn, Ketorolac IV, Acetaminophen VTEP: Mechanical: JAKUB Krause MD, FACS General Surgery Service
[2025-03-26 08:17] LABS: BUN - BLOOD UREA NITROGEN 12.0 mg/dL (6-20); CARBON DIOXIDE - CO2 27.0 mmol/L (21-32); CREATININE 1.3 mg/dL (0.6-1.3); GFR - MDRD 56.0 (>89)
[2025-03-26 08:35] VITALS: TEMP 98.2; O2SAT 97
[2025-03-26 10:15] VITALS: BP 126/80
--- NOTE | 2025-03-26 11:30 | XRAY Report ---
PROCEDURE: XR Chest 1V INDICATIONS: Cough, pleuritic chest pain ROULA TECHNIQUE: One view of the chest was acquired. COMPARISON: None. FINDINGS: Surgical changes and devices: None. Lungs and pleura: No pleural effusions or pneumothorax. No consolidation. Mediastinum: Mediastinal contours appear normal. Heart size is normal. Bones and chest wall: No suspicious bony lesions. Overlying soft tissues appear unremarkable. IMPRESSION: No acute cardiopulmonary process. Reviewed by: Mitchell Quintero MD on 03/26/2025 11:27 AM PDT Approved by: Mitchell Quintero MD on 03/26/2025 11:27 AM PDT Station ID: [id number]
== END 2025-03-26 10:00 | disposition home or self-care (01) ==
LOC: ED 16:12 → MS2 16:12 → SUATTDRO 03-25 02:04 → MS2 03-25 02:52
PROVIDERS: ADMIT Student in an Organized Health Care Education/Training Program; ATTEND Student in an Organized Health Care Education/Training Program